=== PATIENT | female | born 1980 | race Caucasian/White ===

== ENCOUNTER → 2018-11-01 10:04 | Outpatient (CLI) | payer BC, SELFPAY ==
[2014-02-02 04:07] VITALS: BMI 29.2
[2018-11-01 10:35] LABS: Absolute Lymphocyte Count 1.31 X10^3/ul (0.83-4.51); Absolute Neutrophil Count 3.4 X10^3/uL (2.0-7.7); Basophil# 0.03 X10^3/uL; Basophil% 0.5 % (0-1); Differential Indicated SCAN CRITERIA MET; Eosinophils% 3.6 % (0-5); Hematocrit 29.6 % (37-47); Hemoglobin 7.8 g/dl (12.0-15.0); Lymphocyte # 1.31 X10^3/ul (4.0); Lymphocyte % 23.9 % (19-41); Mean Corp Hgb Conc 26.4 g/gl (32-36); Mean Corpuscular Hgb 16.3 pg (27.0-32.0); Mean Corpuscular Volume 61.9 fL (81-99); Monocyte% 9.1 % (0-10); Neutrophil # 3.43 X10^3/uL (2.7-7.7); Neutrophil % 62.7 % (47-70); POSITIVE COUNT NO; POSITIVE DIFFERENTIAL NO; POSITIVE MORPHOLOGY YES; Platelet Count 205 K/mm3 (150-450); RBC Distribution Width CV 19.8 % (11.6-14.6); Red Blood Count 4.78 M/mm3 (4.2-5.4); White Blood Count 5.5 K/mm3 (4.4-11.0)
[2018-11-01 11:00] LABS: Anion Gap 4 (5-15); BUN 11 mg/dL (7-18); BUN/Creat Ratio 16.6 RATIO (10-20); Calcium,Total 8.1 mg/dL (8.5-10.1); Chloride 111 mmol/L (98-107); Cholesterol 112 mg/dL (200); Creatinine, Serum 0.66 mg/dL (0.55-1.02); EST Glomerular Filtration Rate 106 mL/min (>60); Est Glom Filt Rate - Afr Amer 128 mL/min (>60); Glucose 103 mg/dL (74-106); High Density Lipoprotein 29 mg/dL; Potassium 4.2 mmol/L (3.5-5.1); Sodium Level 142 mmol/L (136-145); Triglycerides 95 mg/dL; Very Low Density Lipoprotein 19 mg/dL (5-40)
[2018-11-01 11:08] LABS: Hypochromasia 2+; Microcytosis 2+
[2018-11-01 11:10] LABS: Platelet Morphology LARGE
[2018-11-03 11:35] LABS: Vitamin D,25 Hydroxy 30.1 ng/mL (29.95-100.01)
== END ==
PROVIDERS: Family Provider Family Medicine; PCP Family Medicine; Referring Provider Family Medicine; Visit Provider Family Medicine
DX: Z00.00 Encounter for general adult medical examination without abnormal findings (principal)
CPT/HCPCS: 36415; 80048; 80061; 82306; 85025

== ENCOUNTER → 2018-11-03 16:11 | Outpatient (CLI) | payer BC, SELFPAY ==
[2014-02-02 04:07] VITALS: BMI 29.2
[2018-11-03 18:08] LABS: Absolute Lymphocyte Count 1.64 X10^3/ul (0.83-4.51); Absolute Neutrophil Count 5.3 X10^3/uL (2.0-7.7); Basophil# 0.04 X10^3/uL; Basophil% 0.5 % (0-1); Eosinophil# 0.17 X10^3/uL; Eosinophils% 2.2 % (0-5); Hematocrit 28.1 % (37-47); Hemoglobin 7.6 g/dl (12.0-15.0); Lymphocyte # 1.64 X10^3/ul (4.0); Lymphocyte % 21.4 % (19-41); Mean Corpuscular Hgb 16.5 pg (27.0-32.0); Mean Corpuscular Volume 61.1 fL (81-99); Monocyte# 0.52 X10^3/uL; Monocyte% 6.8 % (0-10); Neutrophil # 5.28 X10^3/uL (2.7-7.7); Platelet Count 207 K/mm3 (150-450); RBC Distribution Width CV 19.7 % (11.6-14.6); RBC Distribution Width SD 43.5 fl (35.1-43.9); White Blood Count 7.7 K/mm3 (4.4-11.0)
[2018-11-03 18:09] LABS: Differential Indicated SCAN CRITERIA MET; POSITIVE COUNT NO; POSITIVE DIFFERENTIAL NO; POSITIVE MORPHOLOGY YES
[2018-11-03 18:22] LABS: Differential Comment SCANNED
[2018-11-05 12:07] LABS: Immature Platelet Fraction 7.3 % (1.0-7.9); RET-HE 14.4 pg (30-35)
== END ==
PROVIDERS: Family Provider Family Medicine; PCP Family Medicine; Visit Provider Family Medicine
DX: R89.9 Unspecified abnormal finding in specimens from other organs, systems and tissues (principal)
CPT/HCPCS: 36415; 85025; 85045

== ENCOUNTER 2018-11-07 08:26 | Outpatient (RCR) | payer BC, SELFPAY ==
[2014-02-02 04:07] VITALS: BMI 29.2
[2018-11-07 10:27] LABS: Hematocrit 28.4 % (37-47); Hemoglobin 7.7 g/dl (12.0-15.0); Mean Corp Hgb Conc 27.1 g/gl (32-36); Mean Corpuscular Hgb 16.8 pg (27.0-32.0); Mean Corpuscular Volume 61.9 fL (81-99); Platelet Count 168 K/mm3 (150-450); RBC Distribution Width CV 19.8 % (11.6-14.6); RBC Distribution Width SD 43.1 fl (35.1-43.9); Red Blood Count 4.59 M/mm3 (4.2-5.4); White Blood Count 5.5 K/mm3 (4.4-11.0)
[2018-11-07 10:52] LABS: Scan Indicated on CBC? Y/N YES- FLAGS NOTED
[2018-11-07 10:54] LABS: Differential Comment SCANNED
== END 2018-11-07 10:00 | disposition home or self-care (01) ==
LOC: MTLAB 08:26
PROVIDERS: Family Provider Family Medicine; PCP Family Medicine; Referring Provider Family Medicine; Visit Provider Family Medicine
DX: D64.9 Anemia, unspecified (principal)
CPT/HCPCS: 36415; 85027

== ENCOUNTER → 2018-11-11 15:23 | Outpatient (CLI) | payer BC, SELFPAY ==
[2014-02-02 04:07] VITALS: BMI 29.2
[2018-11-11 18:04] LABS: Hematocrit 29.3 % (37-47); Hemoglobin 7.9 g/dl (12.0-15.0); Mean Corpuscular Hgb 17.5 pg (27.0-32.0); Mean Corpuscular Volume 64.8 fL (81-99); Platelet Count 141 K/mm3 (150-450); RBC Distribution Width CV 23.6 % (11.6-14.6); RBC Distribution Width SD 45.1 fl (35.1-43.9); Red Blood Count 4.52 M/mm3 (4.2-5.4); White Blood Count 7.2 K/mm3 (4.4-11.0)
[2018-11-11 18:07] LABS: Scan Indicated on CBC? Y/N YES- FLAGS NOTED
[2018-11-11 18:27] LABS: Differential Comment SCANNED
== END ==
PROVIDERS: Family Provider Family Medicine; PCP Family Medicine; Referring Provider Family Medicine; Visit Provider Family Medicine
DX: D64.9 Anemia, unspecified (principal)
CPT/HCPCS: 36415; 85027

== ENCOUNTER → 2018-12-02 | Outpatient (CLI) | payer BC, SELFPAY ==
[2018-12-02 19:08] LABS: Hematocrit 39.4 % (37-47); Mean Corp Hgb Conc 30.5 g/gl (32-36); Mean Corpuscular Hgb 22.9 pg (27.0-32.0); Platelet Count 196 K/mm3 (150-450); Red Blood Count 5.25 M/mm3 (4.2-5.4); White Blood Count 6.5 K/mm3 (4.4-11.0)
[2018-12-02 19:14] LABS: Scan Indicated on CBC? Y/N YES- FLAGS NOTED
[2018-12-04 09:58] LABS: Pathologist Review Reviewed
== END | disposition home or self-care (01) ==
LOC: MFPLAB 15:21
PROVIDERS: Family Provider Family Medicine; PCP Family Medicine; Referring Provider Family Medicine; Visit Provider Family Medicine
DX: D64.9 Anemia, unspecified (principal)
CPT/HCPCS: 36415; 85027

== ENCOUNTER → 2019-11-04 14:58 | Outpatient (CLI) | payer BC, SELFPAY ==
[2014-02-02 04:07] VITALS: BMI 29.2
[2019-11-04 18:09] LABS: Absolute Lymphocyte Count 1.84 X10^3/uL (0.83-4.51); Absolute Neutrophil Count 6.2 X10^3/uL (2.0-7.7); Basophil# 0.08 X10^3/uL; Basophil% 0.9 % (0-1); Eosinophil# 0.35 X10^3/uL; Eosinophils% 3.9 % (0-5); Hematocrit 45.7 % (37-47); Hemoglobin 14.7 g/dL (12.0-15.0); Lymphocyte # 1.84 X10^3/ul (4.0); Lymphocyte % 20.4 % (19-41); Mean Corp Hgb Conc 32.2 g/dL (32-36); Mean Corpuscular Hgb 26.7 pg (27.0-32.0); Mean Corpuscular Volume 83.1 fL (81-99); Mean Platelet Vol. 11.2 fl (6.2-12.0); Monocyte# 0.57 X10^3/uL; Monocyte% 6.3 % (0-10); NRBC Flagged by Analyzer 0 % (0-5); Neutrophil # 6.16 X10^3/uL (2.7-7.7); Neutrophil % 68.2 % (47-70); Platelet Count 234 K/mm3 (150-450); RBC Distribution Width CV 15.9 % (11.6-14.6); RBC Distribution Width SD 47.9 fl (35.1-43.9)
[2019-11-04 18:27] LABS: Ferritin 9 ng/mL (8-252); Iron 57 ug/dL (50-170); Iron Binding Capacity,Total 348 ug/dL (250-450); PERCENT IRON SATURATION 16.4 % (15.0-55.0)
== END ==
PROVIDERS: PCP Family Medicine; Referring Provider Family Medicine; Visit Provider Family Medicine
DX: D64.9 Anemia, unspecified (principal)
CPT/HCPCS: 36415; 82728; 83540; 83550; 85025

== ENCOUNTER → 2020-03-07 09:37 | Outpatient (CLI) | payer BC, SELFPAY ==
[2020-03-10 12:44] LABS: HPV APTIMA, High Risk Negative (Negative)
== END ==
PROVIDERS: PCP Family Medicine; Visit Provider Obstetrics & Gynecology
DX: Z12.4 Encounter for screening for malignant neoplasm of cervix (principal)
CPT/HCPCS: 87624; 88175; G0145

== ENCOUNTER → 2020-03-15 09:44 | Outpatient (CLI) | payer BC, SELFPAY ==
[2014-02-02 04:07] VITALS: BMI 29.2
--- NOTE | 2020-03-15 09:15 | VUL_PTH ---
PATIENT: DUNIA HANKINS LOC: [facility] U#:[id number] AGE/SX: 45/F ROOM: RE03/15/[address]: Dr. Arnie Briggs MD : 1980 BED: DIS: SPEC #: [id number] RECD: 03/15/20 11:09 STATUS: [place]OR[place] NADINE #: [id number] SAQIB: 03/15/20 09:[address]: Arnie Briggs DEPT: SURGICAL PATHOLOGY RECD BY: Eusebio Velasquez ENTERED: 03/15/20 12:10 SP TYPE: VULVA BX OTHR DR: Dr. Naresh Ramsey MD Tissues: Vulva, NOS Procedures: Surgery Specimen Level IV HEADER OPERATION: Vulvar biopsy PRE-OP DIAGNOSIS: Suspicious for Lichen TISSUE SUBMITTED: Vulvar biopsy MICROSCOPIC DIAGNOSIS Vulva, biopsy: Focal changes consistent with lichen sclerosus. Hyperkeratosis. AM:[place] 03/16/20 MICROSCOPIC DESCRIPTION Slides are reviewed. GROSS DESCRIPTION Received in fixative is one container labeled with the patient's name and designated labia biopsy. The specimen consists of two irregular fragments of light english soft tissue that in aggregate measure 0.6 x 0.5 x 0.1 cm. The specimen is totally submitted in one cassette. / AM:zonia 03/15/20 TC:5 CPT: 44879
== END ==
PROVIDERS: PCP Family Medicine; Visit Provider Obstetrics & Gynecology
DX: L85.9 Epidermal thickening, unspecified (principal)
CPT/HCPCS: 88305

== ENCOUNTER → 2020-03-28 11:46 | Outpatient (CLI) | payer BC, SELFPAY ==
--- NOTE | 2020-03-28 11:48 | BI_ITS ---
MAMMOGRAPHY - BILATERAL SCREENING REASON FOR EXAM: Female, 40 years old. Routine annual screening examination. PERTINENT HISTORY: Non-contributory. TECHNIQUE: Digital bilateral breast laverne (3D mammographic acquisition) in the CC and MLO projections. 2-D mediolateral oblique (MLO) and craniocaudad (CC) views of both breasts were obtained. CAD: Full Field Digital Mammography with Computer Added Detection was performed. COMPARISON: None. Baseline examination. FINDINGS: Breast Composition: The breasts are heterogeneously dense, which may obscure small masses. There are no dominant masses or suspicious calcifications. Small benign appearing bilateral axillary lymph nodes. No other significant abnormalities are identified. BI/SCREEN MAMM (CAD) W/LAVERNE BILAT IMPRESSION: Negative screening mammogram. Yearly followup mammogram recommended. (A) ASSESSMENT CATEGORY: BIRADS Category 2: Benign. A letter regarding these results will be sent to the patient by the facility within 30 days. Approximately 10% of breast cancers are not detected by mammography. A normal mammogram should not delay biopsy of a clinically suspicious abnormality. [id number] Electronically Signed: Damon Hamilton, at 15:29 EDT , Service support ,
== END ==
PROVIDERS: PCP Family Medicine; Referring Provider Obstetrics & Gynecology; Visit Provider Obstetrics & Gynecology
DX: Z12.31 Encounter for screening mammogram for malignant neoplasm of breast (principal)
CPT/HCPCS: 77063; 77067

== ENCOUNTER 2021-01-20 09:06 | Emergency (ER) | payer BC, SELFPAY ==
[2021-01-20 09:07] VITALS: BP 127/70; PULSE 99; RESP 16; TEMP 36.4; O2SAT 100; BMI 29.6
--- NOTE | 2021-01-20 09:29 | EDS_ITS ---
HPI HPI - URI History of Present Illness Chief Complaint: Shortness of Breath Informant: patient Onset/Context/Timing Onset: Yesterday Context: Gradual Onset Timing: Continuous Quality: cough, wheezing Location: chest Current Severity: Moderate Maximum Severity: Moderate Worsened by: - (coughing) Relieved by: - (nothing) Associated Symptoms Associated Symptoms: Positive for Nasal Congestion, Myalgias, Shortness of Breath, Chest Pain (tightness) and Nonproductive cough; Negative for Headache, Sinus Pressure, Nausea, Vomiting, Diarrhea and Hemoptysis Narrative Narrative: Patient presents with nonproductive cough, wheezing, chest tightness, myalgias that started yesterday gradual in onset, she works 3rd shift and was seen in urgent care sent here. No known contact with anyone with similar illness or Covid that she knows of. She has never been vaccinated against Covid. She denies history of asthma. No leg pain or swelling. No history of DVT or PE. She is a smoker. ROS ROS ED Constitutional Constitutional ED: Denies chills or fever(s) Eyes Eyes: Denies change in vision or diplopia ENT ENT ED: Denies sore throat Cardiovascular Cardiovascular: Reports as per HPI and chest pain; Denies palpitations Respiratory/Chest Respiratory/Chest: Reports chest tightness, dry cough and wheezing Gastrointestinal Gastrointestinal: Denies abdominal pain, diarrhea, nausea or vomiting Genitourinary Genitourinary ED: Denies dysuria or hematuria Musculoskeletal Musculoskeletal: Denies back pain or neck pain Integumentary Denies abscess or rash Neurologic Neurologic: Denies headache(s), paresthesias or weakness Psychiatric Psychiatric: Denies anxiety or suicidal thoughts PFSH PFSH no medical history Home Medications clindamycin HCl [Cleocin HCl] 300 mg PO Q6H #40 capsule 02/02/14 [Rx Last Taken Unknown] etodolac 300 mg PO TIDCM PRN #30 capsule 02/02/14 [Rx Last Taken Unknown] albuterol sulfate [Ventolin HFA] 1 - 2 puff INHALATION Q4H PRN PRN #1 inhaler 01/20/21 [Rx Last Taken Unknown] benzonatate 200 mg PO TID PRN PRN #20 capsule 01/20/21 [Rx Last Taken Unknown] Allergy/AdvReac Type Severity Reaction Status Date / Time No Known Allergies Allergy Verified 01/20/21 09:07 Social History Smoking Status: Current every day smoker tobacco type: cigarettes EXAM Physical Exam Const Vital Signs: 01/20/21 09:07 01/20/21 09:14 Temperature 97.6 F L Temperature Source Temporal Pulse Rate 99 Respiratory Rate 16 Respiratory Effort Normal Non-Labored Blood Pressure 127/70 H Blood Pressure Mean 89 Pulse Ox 100 Oxygen Delivery Method Room Air Room Air Positive well nourished and well developed General Appearance ED: well developed and NAD HEENT Reports moist mucous membranes normocephalic and atraumatic Eyes PERRL and EOMs intact bilaterally Neck full ROM and supple Resp normal respiratory effort Effort and Inspection: Negative for respiratory distress Auscultation: wheezes expiratory wheezes and throughout Cardio regular rate, regular rhythm and no murmurs Back/Spine no CVA tenderness General Back: other FROM Extremity normal to inspection and no calf tenderness General Extremety ED: Negative for edema, pulses abnormal or tenderness General Extremity: Negative for edema or pulses abnormal Neuro oriented x3, CN's II-XII intact bilaterally and no sensory deficits noted Sensorium / Orientation: awake and alert Motor Exam: strength 5/5 throughout Skin no rashes or lesions noted and no wounds MDM MDM MDM Narrative Medical decision making narrative: Rapid Covid negative, portable chest negative as well on my interpretation 1 view chest x-ray. Patient is improved after duo nebulizer treatment. Consistent with viral etiology bronchitis that is causing wheezing, for which antibiotics and steroids are not indicated at this time. S he given a prescription for albuterol MDI and Tessalon and advised to follow-up if she does not improve within the next week or so. We discussed reasons to return she is comfortable with that plan. Radiography Diagnostic Testing: Radiology Impression Chest X-Ray 01/20/21 10:18 IMPRESSION: Normal portable chest. Electronically Signed: Tushar Higgins DO at 10:52 EDT Tel , Service support , Discharge Plan Triage Chief Complaint: Shortness of Breath ED Provider: Nathan Oleary Dx/Rx/DC Orders Clinical Impression: Acute wheezy bronchitis Instructions: ED Bronchitis with Wheezing (Adult) Prescriptions: New benzonatate [benzonatate] 100 MG capsule 200 mg PO TID PRN PRN (Reason: Cough) Qty: 20 RF: 0 albuterol sulfate [Ventolin HFA] 1 INHALER inhaler 1 - 2 puff inhalation Q4H PRN PRN (Reason: Wheezing) Qty: 1 RF: 0 No Action clindamycin HCl [Cleocin HCl] 300 MG capsule 300 mg PO Q6H Qty: 40 RF: 0 etodolac 300 MG capsule 300 mg PO TIDCM PRN (Reason: Pain) Qty: 30 RF: 0 Primary Care Provider: Naresh Ramsey Referrals: Naresh Ramsey MD [Primary Care Provider] - 10-14 Days if not better Disposition Disposition: Home, Self Care
--- NOTE | 2021-01-20 10:18 | RAD_ITS ---
EXAM DESCRIPTION: PORTABLE AP CHEST CLINICAL HISTORY: 41 years Female, cough sob cough sob COMPARISON: None FINDINGS: The thorax is intact. The heart and mediastinum appear to be within normal limits. The lungs appear to be well areated without evidence of pneumonic consolidation or pleural effusion. RAD/Chest 1 View (Portable) IMPRESSION: Normal portable chest. Electronically Signed: Tushar Higgins DO at 10:52 EDT Tel , Service support ,
[2021-01-20] MEDS: Ipratropium/Albuterol Sulfate 3 ML AMPUL.NEB INHALATION (11:28)
[2021-01-20 11:29] VITALS: PULSE 90; RESP 18
[2021-01-20 11:43] VITALS: BP 121/62; PULSE 84; RESP 16; O2SAT 100
== END 2021-01-20 12:00 | disposition home or self-care (01) ==
PROVIDERS: Emergency Provider Emergency Medicine; PCP Family Medicine
DX: J20.9 Acute bronchitis, unspecified (principal); F17.210 Nicotine dependence, cigarettes, uncomplicated; Z79.899 Other long term (current) drug therapy
CPT/HCPCS: 71045; 87426; 94640; 99282

== ENCOUNTER 2021-07-04 08:02 | Outpatient (CLI) | payer BC, SELFPAY ==
--- NOTE | 2021-07-04 08:05 | BI_ITS ---
MAMMOGRAPHY - BILATERAL SCREENING REASON FOR EXAM: Female, 41 years old. Routine annual screening examination. PERTINENT HISTORY: Non-contributory. Occasional bilateral nipple soreness. TECHNIQUE: Digital bilateral breast laverne (3D mammographic acquisition) in the CC and MLO projections. 2-D mediolateral oblique (MLO) and craniocaudad (CC) views of both breasts were obtained. CAD: Full Field Digital Mammography with Computer Added Detection was performed. COMPARISON: Comparison is made with prior study 03/28/2020. FINDINGS: Breast Composition: The breasts are heterogeneously dense, which may obscure small masses. There are no dominant masses or suspicious calcifications. Stable small benign-appearing bilateral axillary lymph nodes. No other significant abnormalities are identified. There has been no significant change since the prior study. BI/SCRN MAMM (CAD)W/LAVERNE BILAT IMPRESSION: Stable bilateral screening mammogram. Yearly follow-up mammogram recommended. (A) ASSESSMENT CATEGORY: BIRADS Category 2: Benign. A letter regarding these results will be sent to the patient by the facility within 30 days. Approximately 10% of breast cancers are not detected by mammography. A normal mammogram should not delay biopsy of a clinically suspicious abnormality. [id number] Electronically Signed: Damon Hamilton MD at 8:41 EST , Service support ,
== END 2021-07-04 23:59 | disposition short-term general hospital (02) ==
LOC: OPBI 08:02
PROVIDERS: PCP Family Medicine; Referring Provider Obstetrics & Gynecology; Visit Provider Obstetrics & Gynecology
DX: Z12.31 Encounter for screening mammogram for malignant neoplasm of breast (principal)
CPT/HCPCS: 77063; 77067

== ENCOUNTER → 2022-12-27 | Outpatient (CLI) | payer BC, SELFPAY ==
--- NOTE | 2022-12-27 14:49 | BI_ITS ---
MAMMOGRAPHY - BILATERAL SCREENING REASON FOR EXAM: Female, 42 years old. Routine annual screening examination. PERTINENT HISTORY: Non-contributory. TECHNIQUE: Digital bilateral breast laverne (3D mammographic acquisition) in the CC and MLO projections. 2-D mediolateral oblique (MLO) and craniocaudad (CC) views of both breasts were obtained. CAD: Full Field Digital Mammography with Computer Added Detection was performed. COMPARISON: Comparison is made with prior study dated July 04, 2021 and March 28, 2020. FINDINGS: Breast Composition: The breasts are heterogeneously dense, which may obscure small masses. There are no dominant masses or suspicious calcifications. Stable small benign-appearing bilateral axillary lymph nodes. No other significant abnormalities are identified. There has been no significant change since the prior study. BI/SCRN MAMM (CAD)W/LAVERNE BILAT IMPRESSION: Stable bilateral screening mammogram. Yearly follow-up mammogram recommended. (A) ASSESSMENT CATEGORY: BIRADS Category 2: Benign. A letter regarding these results will be sent to the patient by the facility within 30 days. Approximately 10% of breast cancers are not detected by mammography. A normal mammogram should not delay biopsy of a clinically suspicious abnormality. [id number] Electronically Signed: Damon Hamilton MD at 8:29 EDT ,
== END | disposition home or self-care (01) ==
PROVIDERS: Referring Provider Obstetrics & Gynecology; Visit Provider Obstetrics & Gynecology
DX: Z12.31 Encounter for screening mammogram for malignant neoplasm of breast (principal)
CPT/HCPCS: 77063; 77067

== ENCOUNTER → 2023-07-30 | Outpatient (CLI) | payer BC, SELFPAY ==
--- OUTSIDE RECORDS SUMMARY | 2023-07-30 08:45 | XMS RPT_ITS | CCD ---
Author Name Unknown Address [address] [place] [address] Organization [facility] Care Team Providers Care Clerical Receptionist Name Role Phone Unavailable Primary Care Provider Unavailabl e Medications Current Medications Medication Drug Class(es) Dates Sig (Normalized) Sig (Original) Inhalational Spacing Device (1 source) Start: 11-17-2021 End: 11-17-2021 Inhalational Spacing Device 1 Device one time only for 1 dose. 1 Each 0 11/17/2021 11/17/2021 Active Completed/Discontinued Medications Medication Drug Class(es) Dates Sig (Normalized) Sig (Original) [id number] 200 actuat albuterol 0.09 mg/actuat metered dose inhaler (2 sources) beta2-Adrenergic Agonist Start: 06-21-2013 take 2 puff(s) by inhalation every six hours as needed for wheezing albuterol HFA (PROVENTIL HFA, VENTOLIN HFA) 90 mcg/actuation inhaler Inhale 2 Puffs as instructed every 6 hours as needed for wheezing/shortnes s of breath. 1 Each 0 11/17/2021 Active Problems Active Problems Problem Classification Problem Date Documented Da te Episodic/Chronic Coagulation and hemorrhagic disorders (1 source) Platelet count below reference range; Translations: [Thrombocytopenia , unspecified] 09-18-2007 Chronic Other lower respiratory disease (1 source) Cough; Translations: [Cough] Episodic Substance-related disorders (1 source) Tobacco user; Translations: [Nicotine dependence, unspecified, uncomplicated] Onset: 10-02-2008 10-02-2008 Chronic Past or Other Problems Problem Classification Problem Date Documented Da te Episodic/Chronic Other nutritional; endocrine; and metabolic disorders (1 source) Overweight; Translations: [Overweight] Onset: 09-18-2007 09-18-2007 Episodic Results Test Name Value Interpretation Reference Range Facil ity Vital Signs Date Time Vital Sign Value Performing Clinician Faci lity 11-17-2021 18:16-0400 Body temperature 98.6 [degF] Marilia Gaitan APRN.[place] [employer] Work Phone: [facility] 11-17-2021 18:16-0400 Body weight 74.03 kg Marilia Gaitan APRN.[place] CLEAR[employer] Work Phone: [facility] 11-17-2021 18:16-0400 Diastolic blood pressure 64 mm[Hg] Marilia Gaitan APRN.[place] [employer] Work Phone: [facility] 11-17-2021 18:16-0400 Heart rate 88 /min Marilia Gaitan APRN.[place] [employer] Work Phone: [facility] 11-17-2021 18:16-0400 Respiratory rate 18 /min Marilia Gaitan APRN.[place] [employer] Work Phone: [facility] 11-17-2021 18:16-0400 SaO2% (BldA) [Mass fraction] 99 % Marilia Gaitan APRN.[place] [employer] Work Phone: [facility] 11-17-2021 18:16-0400 Systolic blood pressure 128 mm[Hg] Marilia Gaitan APRN.[place] [employer] Work Phone: [facility] Encounters Encounter Date Encounter Type Care Provider Facility Start: 11-17-2021 End: 11-17-2021 Patient encounter procedure Marilia Gaitan APRN.[place] [employer] Work Phone: [facility] Plan of Treatment Date Care Activity Detail Author Start: 02-15-2022 Influenza vaccination INFLUENZA (Sea son Ended) [facility] Start: 10-12-2021 HPV TESTING HPV TESTING [facility] Start: 10-12-2021 PAP TESTING PAP TESTING [facility] Start: 2020 Mammography MAMMOGRAM [facility] Start: 01-11-1999 Urine microalbumin profile DTAP,TDAP,TD (1 - Tdap) [facility] Start: 01-11-1998 HEPATITIS C SCREENING HEPATITIS C SC ZIYAD [facility] Start: 01-11-1998 HIV SCREENING HIV SCREENING [facility] Start: 1992 Adult depression screening assessment DEPRESSION SCREENING [facility] Start: 01-11-1986 PNEUMOCOCCAL (1 - PCV) PNEUMOCOCCAL (1 - PCV) [facility] Start: 01-11-1985 COVID-19 VACCINE (#1) COVID-19 VACCI NE (#1) [facility] Immunizations Immunization Date Immunization Notes Care Provider Ynes booker 04-23-2008 influenza virus vaccine, unspecified formulation Marilia Gaitan APRN.[place] [employer] Work Phone: [facility] Work Phone: Payers Date Payer Category Payer Unknown SHAKIR FRANCOIS PPO [id number] 2021-Present [phone] [address] [place] [address] PPO [id number] Social History Date Type Detail Facility Tobacco smoking stat [facility] Smokes tobacco daily [facility] Start: 11-17-2021 Alcohol intake Current drinke r of alcohol (finding) [facility] Start: 1980 Sex Assigned At Not on file [facility] Start: 11-07-2021 End: 11-17-2021 Exposure to SARS-CoV-2 (event) Not sure [facility] Progress note 11-17-2021 Note Date & Type Note Facility 11-17-2021 Note HNO ID: [id number] Author: Marilia Gaitan APRN.[place] CLE[employer] Service: ? Author Type: Nurse Practitioner Type: Progress Notes Filed: 11/17/2021 6:32 PM Note Text: CC: Patient presents with: Chest Congestion: intermittent SOB with coughing, denied chest pain, reported chest tightness HPI: Germán Hankins is a 41 year old female who presents to the office with complaint of cough, nonproductive and wheezing for the past day. Symptoms are worsening Associated symptoms includes cough. Denies fever, nausea, vomiting and diarrhea. Treatments tried include nothing so far. with no relief of symptoms. Sick contacts: unknown. History of asthma, frequent episodes of bronchitis, chronic bronchitis, bronchiectasis or COPD: No Smoker: No Seasonal/environmental allergies: No The ROS is otherwise negative. The patient's pmh, medications, allergies, and past visits are reviewed. PHYSICAL EXAM: BP 128/64 Pulse 88 Temp 37 ?C (98.6 ?F) Resp 18 Wt 74 kg (163 lb 3.2 oz) LMP 11/14/2021 SpO2 99% General appearance: alert, cooperative, pleasant, in no acute distress Head: Normocephalic Eyes: EOM's intact, conjunctiva pink and moist, no icterus, sclera white, non-injected Ears: Right ear: External ear/canal- Normal, TM - clear with good landmarks. Left ear: External ear/canal- Normal, TM - clear with good landmarks Heart: Negative. RRR without obvious murmur, gallop, or rubs. No ectopy. Lungs: clear to auscultation, without rales or wheeze, good air exchange PAST MEDICAL HISTORY Diagnosis Date - Thrombocytopenia, unspecified (HCC) 2005 while , has not been rechecked to make sure they returned to normal. PAST SURGICAL HISTORY Procedure Laterality Date - DELIVERY ONLY 2002,2005 , low cervical - TONSILLECTOMY AND ADENOIDECTOMY T/A (under age 12 years) - TYMPANOSTOMY GENERAL ANESTHESIA 1985 Ear tubes ALLERGIES Patient has no known allergies. MEDICATIONS multivit,thx,calcium,iron,mins (MULTIVITAMIN AND MINERAL ORAL) Take by mouth. albuterol HFA (PROVENTIL HFA, VENTOLIN HFA) 90 mcg/actuation inhaler Inhale 2 Puffs as instructed every 6 hours as needed for wheezing/shortness of breath. Inhalational Spacing Device 1 Device one time only for 1 dose. predniSONE (DELTASONE) 20 mg tablet Take 2 tablets by mouth once daily for 5 days. Azelastine HCl (OPTIVAR) 0.05 % ophthalmic solution Use 1 Drop in both eyes twice daily. albuterol HFA 90 mcg/actuation inhaler Inhale 2 Puffs as instructed every 6 hours as needed for Wheezing/Shortness of Breath. FAMILY HISTORY Problem Relation Age of Onset - Hypertension Maternal Grandfather - Hypertension Maternal Grandmother Social History Tobacco Use - Smoking status: Current Every Day Smoker Years: 5.00 - Smokeless tobacco: Never Used - Tobacco comment: 3 cigs/day Substance Use Topics - Alcohol use: Yes Comment: 1 drink/6 months - Drug use: No ASSESSMENT/PLAN: 1. Cough - ICD9: 786.2, ICD10: R05.9 Prescription instructions reviewed with patient as applicable. prednisone for 5 days and albuterol PRN. Potential red flag symptoms discussed with the patient. Reviewed appropriate action plan to take if red flag symptoms occur. Patient agreeable to treatment plan. Marilia Gaitan APRN.INDIRA [facility] History of Present illness Narrative 11-17-2021 Marilia Gaitan APRN.INDIRA - 11/17/2021 6:29 PM EDT Note Date & Type Note Facility 11-17-2021 History of Presen t illness Narrative CC: Patient presents with: Chest Congestion: intermittent SOB with coughing, denied chest pain, reported chest tightness HPI: Germán Hankins is a 41 year old female who presents to the office with complaint of cough, nonproductive and wheezing for the past day. Symptoms are worsening Associated symptoms includes cough. Denies fever, nausea, vomiting and diarrhea. Treatments tried include nothing so far. with no relief of symptoms. Sick contacts: unknown. History of asthma, frequent episodes of bronchitis, chronic bronchitis, bronchiectasis or COPD: No Smoker: No Seasonal/environmental allergies: No The ROS is otherwise negative. The patient's pmh, medications, allergies, and past visits are reviewed. PHYSICAL EXAM: BP 128/64 Pulse 88 Temp 37 C (98.6 F) Resp 18 Wt 74 kg (163 lb 3.2 oz) LMP 11/14/2021 SpO2 99% General appearance: alert, cooperative, pleasant, in no acute distress Head: Normocephalic Eyes: EOM's intact, conjunctiva pink and moist, no icterus, sclera white, non-injected Ears: Right ear: External ear/canal- Normal, TM - clear with good landmarks. Left ear: External ear/canal- Normal, TM - clear with good landmarks Heart: Negative. RRR without obvious murmur, gallop, or rubs. No ectopy. Lungs: clear to auscultation, without rales or wheeze, good air exchange PAST MEDICAL HISTORY Diagnosis Date Thrombocytopenia, unspecified (HCC) 2005 while , has not been rechecked to make sure they returned to normal. PAST SURGICAL HISTORY Procedure Laterality Date DELIVERY ONLY 2002,2005 , low cervical TONSILLECTOMY & ADENOIDECTOMY <AGE 12 1985 (tonsils), 1986 (adenoids) T/A (under age 12 years) TYMPANOSTOMY GENERAL ANESTHESIA 1986 Ear tubes ALLERGIES Patient has no known allergies. MEDICATIONS multivit,thx,calcium,iron,mins (MULTIVITAMIN AND MINERAL ORAL) Take by mouth. albuterol HFA (PROVENTIL HFA, VENTOLIN HFA) 90 mcg/actuation inhaler Inhale 2 Puffs as instructed every 6 hours as needed for wheezing/shortness of breath. Inhalational Spacing Device 1 Device one time only for 1 dose. predniSONE (DELTASONE) 20 mg tablet Take 2 tablets by mouth once daily for 5 days. Azelastine HCl (OPTIVAR) 0.05 % ophthalmic solution Use 1 Drop in both eyes twice daily. albuterol HFA 90 mcg/actuation inhaler Inhale 2 Puffs as instructed every 6 hours as needed for Wheezing/Shortness of Breath. FAMILY HISTORY Problem Relation Age of Onset Hypertension Maternal Grandfather Hypertension Maternal Grandmother Social History Tobacco Use Smoking status: Current Every Day Smoker Years: 5.00 Smokeless tobacco: Never Used Tobacco comment: 3 cigs/day Substance Use Topics Alcohol use: Yes Comment: 1 drink/6 months Drug use: No ASSESSMENT/PLAN: 1. Cough - ICD9: 786.2, ICD10: R05.9 Prescription instructions reviewed with patient as applicable. prednisone for 5 days and albuterol PRN. Potential red flag symptoms discussed with the patient. Reviewed appropriate action plan to take if red flag symptoms occur. Patient agreeable to treatment plan. Marilia Gaitan APRN.INDIRA documented in this encounter [facility] Progress note 08-07-2021 Note Date & Type Note Facility 08-07-2021 Note HNO ID: [id number] Author: Nori Rojas PA-C Service: ? Author Type: Physician Program Developer Type: Progress Notes Filed: 08/07/2021 3:48 PM Note Text: This note was created using [employer]. Subjective Germán Hankins is a 41 year old female. HPI Patient presents with a swollen lymph node over the past 10 days. She had a cold at the end of June that lasted about 4 days. She states since then she has felt fine. The past 10 days she has noticed on the right side of her neck a swollen lymph node. It is tender. She has been taking Tylenol [id number]. Denies any dental pain. No sore throat. No ear pain. No fever or chills. Denies any weight loss or bruising. No other swollen lumps noticed. Review of Systems Hematological: Positive for adenopathy. Does not bruise/bleed easily. All other systems reviewed and are negative. PAST MEDICAL HISTORY Diagnosis Date - Thrombocytopenia, unspecified (HCC) 2006 while , has not been rechecked to make sure they returned to normal. Current Outpatient Medications Medication Sig Dispense Refill - cephALEXin (KEFLEX) 500 mg capsule Take 1 capsule by mouth three times daily for 7 days. 21 capsule 0 - predniSONE (DELTASONE) 10 mg tablet Take 4 tabs daily for 3 days, then 2 tabs daily for 3 days, then 1 tab daily for 3 days with food. (Patient not taking: Reported on 01/20/2021 ) 21 tablet 0 - Azelastine HCl (OPTIVAR) 0.05 % ophthalmic solution Use 1 Drop in both eyes twice daily. (Patient not taking: Reported on 01/20/2021 ) 1 Bottle 0 - albuterol HFA 90 mcg/actuation inhaler Inhale 2 Puffs as instructed every 6 hours as needed for Wheezing/Shortness of Breath. (Patient not taking: Reported on 01/20/2021 ) 1 Inhaler 2 No current facility-administered medications for this visit. PAST SURGICAL HISTORY Procedure Laterality Date - DELIVERY ONLY 2002,2005 , low cervical - TONSILLECTOMY AND ADENOIDECTOMY T/A (under age 12 years) - TYMPANOSTOMY GENERAL ANESTHESIA 1985 Ear tubes FAMILY HISTORY Problem Relation Age of Onset - Hypertension Maternal Grandfather - Hypertension Maternal Grandmother Social History Tobacco Use - Smoking status: Current Every Day Smoker Years: 5.00 - Smokeless tobacco: Never Used - Tobacco comment: 3 cigs/day Substance Use Topics - Alcohol use: Yes Comment: 1 drink/6 months - Drug use: No Objective BP 118/76 Pulse 80 Temp (!) 35.8 ?C (96.5 ?F) Resp 16 Wt 74.6 kg (164 lb 6.4 oz) LMP 12/20/2015 SpO2 99% Physical Exam Vitals reviewed. Constitutional: Appearance: Normal appearance. HENT: Head: Normocephalic and atraumatic. Right Ear: Tympanic membrane, ear canal and external ear normal. Left Ear: Tympanic membrane, ear canal and external ear normal. Nose: Nose normal. Mouth/Throat: Mouth: Mucous membranes are moist. Pharynx: Oropharynx is clear. No oropharyngeal exudate or posterior oropharyngeal erythema. Cardiovascular: Rate and Rhythm: Normal rate and regular rhythm. Heart sounds: Normal heart sounds. Pulmonary: Effort: Pulmonary effort is normal. Breath sounds: Normal breath sounds. Chest: Breasts: Right: No supraclavicular adenopathy. Left: No supraclavicular adenopathy. Lymphadenopathy: Head: Right side of head: Tonsillar adenopathy present. No submental, submandibular, preauricular, posterior auricular or occipital adenopathy. Left side of head: No submental, submandibular, tonsillar, preauricular, posterior auricular or occipital adenopathy. Cervical: Right cervical: No superficial, deep or posterior cervical adenopathy. Left cervical: No superficial, deep or posterior cervical adenopathy. Upper Body: Right upper body: No supraclavicular adenopathy. Left upper body: No supraclavicular adenopathy. Comments: patient has one swollen tonsillar lymph node on the right. No overlying redness. No other nodes palpated. Skin: General: Skin is warm and dry. Neurological: General: No focal deficit present. Mental Status: She is alert and oriented to person, place, and time. Assessment and Plan ASSESSMENT/PLAN: 1. Lymphadenitis - ICD9: 289.3, ICD10: I88.9 Keflex x 1 week. If not improving in 2 weeks follow upw ith pcp. Patient agreeable. Nori Rojas PA-C [facility] Progress note 01-20-2021 Note Date & Type Note Facility 01-20-2021 Note HNO ID: [id number] Author: Doroteo Jackson APRN.[employer] Service: ? Author Type: Nurse Practitioner Type: Progress Notes Filed: 01/20/2021 9:22 AM Note Text: Patient is a healthy nontoxic-appearing 41-year-old female with past medical history of tobacco use disorder, thrombocytopenia, obesity presents the office today for multiple medical complaints. Patient states of the past day she has had a harsh dry nonproductive cough, wheezing, midsternal nonradiating chest tightness no alleviating or worsening factors and resolved on its own spontaneously. Patient complains of persistent shortness of breath even at rest. Patient with general body aches and pains with fatigue. Patient denies any contact with known sick individuals, taste or smell sensation change, recent travel. Patient denies any abdominal pain, nausea, vomiting, diarrhea or constipation. Patient denies any fever, shaking, or chills. Given patient's complaint presentation I recommended patient go to the emergency room for further evaluation. Patient does have wheezing auscultated throughout all lung hill, speaking with sentences no respiratory distress, remains hemodynamically stable during office visit, pulse ox is 98% on room air however given findings I do believe a differential diagnosis of ACS, pulmonary embolism, aortic abdominal aneurysm, community-acquired pneumonia is warranted. Patient is agreeable and will go to emergency room. Report was given to [facility] via their policy. Patient ambulated out of the office today on her own power in no distress. Doroteo Jackson APRN.LAND CLEARER [facility] Evaluation note Note Date & Type Note Facility documented in this encounter [facility] Summary Purpose Family History No Family History Records Found Advance Directives No Advanced Directives Records Found Additional Source Comments Source Comments (unrecognize d section and content) In the event this informatio n is protected by the Federal Confidentiality of Alcohol and Drug Abuse Patient Records regulations: The Federal rules restrict any use of the information to criminally investigate or prosecute any alcohol or drug abuse patient.[facility] Reason for Visit (unrecogniz ed section and content) INFORMATION SOURCE (unrecogn ized section and content) FOR RECORDS PERTAINING TO PATIENTS WHO ARE OR HAVE BEEN ENROLLED IN A CHEMICAL DEPENDENCY/SUBSTANCEABUSE PROGRAM, SOME INFORMATION MAY BE OMITTED. This clinical summary was aggregated from multiple sources. Caution should be exercised in using it in the provision of clinical care. This summary normalizes information from multiple sources, and as a consequence, information in this document may materially change the coding, format and clinical context of patient data. In addition, data may be omitted in some cases. CLINICAL DECISIONS SHOULD BE BASED ON THE PRIMARY CLINICAL RECORDS. [facility] [employer] [facility]. provides no warranty or guarantee of the accuracy or completeness of information in this document.
[2023-07-30 10:36] LABS: Anion Gap 4 (5-15); BUN 11 mg/dL (7-18); BUN/Creat Ratio 15.2 RATIO (10-20); Calcium,Total 8.7 mg/dL (8.5-10.1); Chloride 113 mmol/L (98-107); Cholesterol 151 mg/dL (200); Creatinine, Serum 0.73 mg/dL (0.55-1.02); EST Glomerular Filtration Rate 93 mL/min (>60); Est Glom Filt Rate - Afr Amer 112 mL/min (>60); Glucose 86 mg/dL (74-106); High Density Lipoprotein 32 mg/dL; Potassium 4.4 mmol/L (3.5-5.1); Sodium Level 141 mmol/L (136-145); Thyroid Stim Hormone (TSH) 3.61 uIU/mL (0.358-3.74); Triglycerides 88 mg/dL; Very Low Density Lipoprotein 18 mg/dL (5-40)
== END | disposition home or self-care (01) ==
LOC: MFPLAB 08:24
PROVIDERS: Visit Provider Family Medicine
DX: Z00.00 Encounter for general adult medical examination without abnormal findings (principal)
CPT/HCPCS: 36415; 80048; 80061; 84443

== ENCOUNTER → 2024-02-07 | Outpatient (CLI) | payer BC, SELFPAY ==
[2024-02-07 11:30] LABS: Erythrocyte Sedimentation Rate 4 mm/hr (0-30)
[2024-02-07 11:34] LABS: CRP < 2.90 mg/L (0.0-3.0)
[2024-02-11 19:07] LABS: Angiotensin Convert Enzyme 53 U/L (14-82); QNTFERON TB Mitogen Value > 10.00 IU/mL (.); QNTFERON TB Nil Value 0.03 IU/mL (.); QNTFERON TB1+ Ag Value 0.03 IU/mL (.); QNTFERON TB2+ Ag Value 0.04 IU/mL (.); QNTIFERON TB Positive Criteria Negative (Negative)
== END | disposition home or self-care (01) ==
LOC: LAB 10:31
PROVIDERS: PCP Family Medicine; Referring Provider Internal Medicine Pulmonary Disease; Visit Provider Internal Medicine Pulmonary Disease
DX: R06.02 Shortness of breath (principal); R05.9 Cough, unspecified
CPT/HCPCS: 36415; 82164; 85652; 86140; 86480

== ENCOUNTER → 2024-09-01 | Outpatient (CLI) | payer BC, SELFPAY ==
[2024-09-01 10:49] LABS: Absolute Lymphocyte Count 1.35 X10^3/uL (0.83-4.51); Absolute Neutrophil Count 5.8 X10^3/uL (2.0-7.7); Basophil# 0.08 X10^3/uL; Eosinophil# 0.25 X10^3/uL; Hematocrit 34.8 % (37-47); Hemoglobin 9.9 g/dL (12.0-15.0); Lymphocyte # 1.35 X10^3/ul (0.83-4.51); Lymphocyte % 16.4 % (19-41); Mean Corp Hgb Conc 28.4 g/dL (32-36); Mean Corpuscular Hgb 18.4 pg (27.0-32.0); Mean Corpuscular Volume 64.6 fL (81-99); Monocyte# 0.73 X10^3/uL; Monocyte% 8.8 % (0-10); NRBC Flagged by Analyzer 0 % (0-5); Neutrophil # 5.81 X10^3/uL (2.7-7.7); Neutrophil % 70.4 % (47-70); Platelet Count 205 K/mm3 (150-450); RBC Distribution Width CV 18.1 % (11.6-14.6); RBC Distribution Width SD 38.8 fl (35.1-43.9); Red Blood Count 5.39 M/mm3 (4.2-5.4); White Blood Count 8.3 K/mm3 (4.4-11.0)
[2024-09-01 11:33] LABS: Ferritin 4 ng/mL (22-378)
== END | disposition home or self-care (01) ==
LOC: LAB 10:24
PROVIDERS: PCP Family Medicine; Referring Provider Nurse Practitioner Family; Visit Provider Nurse Practitioner Family
DX: R06.02 Shortness of breath (principal); Z86.2 Personal history of diseases of the blood and blood-forming organs and certain disorders involving the immune mechanism
CPT/HCPCS: 36415; 82728; 85025

== ENCOUNTER → 2024-09-30 | Outpatient (CLI) | payer BC, SELFPAY ==
--- NOTE | 2024-09-30 12:57 | ECHOD_ITS ---
Reason For Study Reason For Study: SOB Procedure This was a 2D Doppler, Color Flow transthoracic echocardiogram. Exam performed in department. Left Ventricle Normal LV size. Left ventricular systolic function is normal. The left ventricular ejection fraction is 65 %. No regional wall motion abnormalities noted. Right Ventricle Normal RV size. Normal systolic function. Atria Normal left atrium. Normal right atrium. Mitral Valve Normal mitral valve. Tricuspid Valve Normal tricuspid valve. Aortic Valve Normal aortic valve. Trisinus/trileaflet aortic valve. Pulmonic Valve Normal pulmonic valve. Great Vessels Normal aortic root. The pulmonary artery is normal size. Inferior vena cava collapse with respiration. Pericardium/Pleural No pericardial effusion. MMode/2D Measurements & Calculations LVIDd: 5.0 cm IVSd: 0.87 cm Ao root diam: 3.1 cm LVIDs: 3.3 cm LVPWd: 0.87 cm RVDd: 3.0 cm FS: 34.1 % LAV(MOD-bp): 61.4 ml LVAd ap4: 31.6 cm2 SV(MOD-sp4): 67.5 ml LAV(MOD-bp) Indexed: 34.0 ml/m2 LVLd ap4: 7.9 cm SI(MOD-sp4): 37.3 ml/m2 LAV(MOD-sp2): 59.2 ml EDV(MOD-sp4): 102.8 ml LAV(MOD-sp4): 59.1 ml EDV(sp4-el): 106.8 ml LVAs ap4: 16.0 cm2 LVLs ap4: 6.2 cm ESV(MOD-sp4): 35.3 ml ESV(sp4-el): 35.1 ml EF(MOD-sp4): 65.7 % EF(sp4-el): 67.2 % SV(sp4-el): 71.7 ml LA A4 area: 18.8 cm2 LA dimension(2D): 4.2 cm RA A4 area: 15.2 cm2 TAPSE: 2.8 cm Time Measurements MV dec time: 0.23 sec Doppler Measurements & Calculations MV E max alexander: 102.0 cm/sec Lat Peak E' Alexander: 11.6 cm/sec Med Peak E' Alexander: 10.6 cm/sec MV A max alexander: 82.5 cm/sec E/E' lat: 8.8 E/E' med: 9.6 MV E/A: 1.2 MV V2 max: 130.7 cm/sec MV P1/2t max alexander: 139.8 cm/sec Ao V2 max: 182.2 cm/sec MV max P.8 mmHg MV P1/2t: 72.4 msec Ao max P.3 mmHg MV V2 mean: 64.2 cm/sec Ao V2 mean: 118.6 cm/sec MV mean P.0 mmHg MV dec slope: 565.3 cm/sec2 Ao mean P.6 mmHg MV V2 VTI: 32.1 cm MVA(P1/2t): 3.0 cm2 Ao V2 VTI: 38.8 cm AV (velocity ratio): 0.86 LV V1 max: 157.0 cm/sec PA V2 max: 116.2 cm/sec LV V1 max P.9 mmHg PA V2 mean: 87.6 cm/sec LV V1 mean P.1 mmHg LV V1 mean: 104.5 cm/sec LV V1 VTI: 33.4 cm ECHO/Echo Complete Interpretation Summary Normal LV size. Left ventricular systolic function is normal. The left ventricular ejection fraction is 65 %. Structurally normal valves. Ordering Physician: Tavia Powell Referring Physician: Naresh Ramsey Performed By: Sarah Beth Bhagat, EJ, RVT
== END | disposition home or self-care (01) ==
LOC: CVS 12:52
PROVIDERS: PCP Family Medicine; Referring Provider Nurse Practitioner Family; Visit Provider Nurse Practitioner Family
DX: R06.02 Shortness of breath (principal)
CPT/HCPCS: 93306

== ENCOUNTER → 2024-11-30 | Outpatient (CLI) | payer BC, SELFPAY ==
[2024-11-30 17:16] LABS: Iron 136 ug/dL (50-170); Iron Binding Capacity,Total 354 ug/dL (250-450); Iron Binding Capacity,Unsat 218 ug/dL (228-428)
[2024-11-30 17:21] LABS: Ferritin 33 ng/mL (22-378)
[2024-11-30 19:27] LABS: Absolute Lymphocyte Count 1.15 X10^3/uL (0.83-4.51); Absolute Neutrophil Count 4.2 X10^3/uL (2.0-7.7); Basophil# 0.08 X10^3/uL; Basophil% 1.3 % (0-1); Eosinophil# 0.17 X10^3/uL; Eosinophils% 2.8 % (0-5); Hematocrit 42.4 % (37-47); Hemoglobin 12.3 g/dL (12.0-15.0); Lymphocyte # 1.15 X10^3/ul (0.83-4.51); Lymphocyte % 18.8 % (19-41); Mean Corpuscular Hgb 21.8 pg (27.0-32.0); Mean Corpuscular Volume 75.3 fL (81-99); Monocyte# 0.52 X10^3/uL; Monocyte% 8.5 % (0-10); NRBC Flagged by Analyzer 0 % (0-5); Neutrophil # 4.16 X10^3/uL (2.7-7.7); Neutrophil % 68.1 % (47-70); POSITIVE MORPHOLOGY YES; Platelet Count 210 K/mm3 (150-450); Red Blood Count 5.63 M/mm3 (4.2-5.4); White Blood Count 6.1 K/mm3 (4.4-11.0)
[2024-11-30 23:07] LABS: Differential Indicated SCAN CRITERIA MET
[2024-11-30 23:08] LABS: Differential Comment SCANNED
[2024-11-30 23:09] LABS: Anisocytosis 1+; Platelet Estimate ADEQUATE (ADEQ); Polychromasia 1+
== END | disposition home or self-care (01) ==
LOC: MFPLAB 11:50
PROVIDERS: PCP Family Medicine; Referring Provider Family Medicine; Visit Provider Family Medicine
DX: D50.9 Iron deficiency anemia, unspecified (principal)
CPT/HCPCS: 36415; 82728; 83540; 83550; 85025

== ENCOUNTER → 2025-06-02 | Outpatient (CLI) | payer BC, SELFPAY ==
[2025-06-04 11:09] LABS: HPV APTIMA, High Risk Negative (Negative)
== END | disposition home or self-care (01) ==
LOC: LABSPEC 12:23
PROVIDERS: PCP Family Medicine; Visit Provider Nurse Practitioner Women's Health
DX: Z12.4 Encounter for screening for malignant neoplasm of cervix (principal)
CPT/HCPCS: 87624; 88175; G0145

== ENCOUNTER → 2025-06-11 | Outpatient (CLI) | payer BC, SELFPAY ==
--- NOTE | 2025-06-11 07:50 | US_ITS ---
PROCEDURE: PELVIC W/ TRANSVAGINAL 06/11/2025 REASON FOR EXAM: LMP 05/21/2025. Abnormal uterine bleeding, menorrhagia. TECHNIQUE: Procedure Code: [id number] Modality: US Procedure: PELVIC W/ TRANSVAGINAL COMPARISON: None. FINDINGS: ENDOMETRIUM: Homogeneous normal thickness of 13.0 mm. No abnormal endometrial color Doppler flow. UTERUS: Normal size and contour measuring 12.6 x 6.7 x 5.8 cm. No fibroid detected. CERVIX: Normal size and contour. Small anechoic cervical nabothian cysts. RIGHT OVARY: Normal size and appearance measuring 3.2 x 3.0 x 1.2 cm (volume 6.3 mL). Normal follicles. Normal blood flow. No adnexal mass. LEFT OVARY: Enlarged measuring 4.8 x 3.4 x 2.2 cm (volume 18.9 mL). Normal follicles with a 2.1 cm dominant follicle. Normal blood flow. No adnexal mass. FREE FLUID: No free fluid. URINARY BLADDER: Normal morphology with a volume of 507 mL. US/Pelvic w/ Transvaginal IMPRESSION: No abnormal findings to account for the patient's symptoms. Reading Location: [id number]
--- OUTSIDE RECORDS SUMMARY | 2025-06-11 08:03 | XMS RPT_ITS | CCD ---
Author Organization [facility] CliniSytn Care Team Providers Care Go Go Dancer Name Role Phone Unavailable Primary Care Provider Unavailannika e ALLA DENISE Referring Unavailable Braulio BHAT, Dr. Infante Primary Care Provider [phone] Dr. Naresh Ramsey MD Referring Provider [phone] Andre DETAIL SERGEANT-CTavia Attending Provider Andre DETAIL SERGEANT-CTavia Referring Provider Dr. Tony Sanchez MD Attending Provider [phone] Dr. Naresh Ramsey MD Attending Provider Tavia Powell Attending Unavailable Naresh Ramsey Referring Unavailable Ramsey, Naresh Primary Care Unavailable Ramsey, Naresh Referring Unavailable Ramsey, Naresh Attending Unavailable Braulio, Naresh Primary Care Unavailable Braulio, Naresh Primary Care Unavailable Tavia Powell Attending Unavailable Tavia Powell Referring Unavailable Tony Sanchez Attending Unavailable Naresh Ramsey Primary Care Unavailable Tavia Powell Attending Unavailable Braulio, Naresh Referring Unavailable Ramsey, Naresh Primary Care Unavailable Ramsey, Naresh Primary Care Unavailable SibAlla damian V Referring Unavailable Alla Denise V Attending Unavailable Tavia Powell Attending Unavailable Tavia Powell Referring Unavailable Braulio, Naresh Primary Care Unavailable Tavia Powell Attending Unavailable Naresh Ramsey Primary Care Unavailable Tavia Powell Referring Unavailable Medications Current Medications Medication Drug Class(es) Dates Sig (Normalized) Sig (Original) [id number] actuat albuterol 0.09 mg/actuat metered dose inhaler (9 sources) beta2-Adrenergic Agonist Start: 09-14-2023 take 2 puff(s) by inhalation every four hours as needed for wheezing albuterol HFA (PROVENTIL HFA, VENTOLIN HFA) 90 mcg/actuation inhaler Indications: URI, acute , Wheezing Inhale 2 Puffs as instructed every 4 hours as needed for wheezing/shortnes s of breath. 1 Each 09/14/2023 Active Start: 01-20-2021 End: 09-01-2024 Albuterol Sulfate (Ventolin Hfa) 1 INHALER inhaler Discontinued 1 - 2 NMA INHALATION EVERY 4 HOURS NEEDED as needed for Wheezing January 20, 2021 12:00am September 01, 2024 9:18am Start: 01-20-2021 take 1 puff(s) by in halation every four hours as needed Albuterol Sulfate (Ventolin Hfa) 1 INHALER inhaler Active 1 - 2 PUFF INHALATION EVERY 4 HOURS NEEDED January 19, 2021 11:00pm Start: 06-21-2013 take 2 puff(s) by in halation every six hours as needed for wheezing albuterol HFA 90 mcg/actuation inhaler Indications: Acute bronchitis Inhale 2 Puffs as instructed every 6 hours as needed for Wheezing/Shortness of Breath. 1 Inhaler 2 06/21/2013 Active Comment on above: Inhale 2 Puffs as in structed every 6 hours as needed for Wheezing/Shortness of Breath. azelastine hydrochloride 0.5 mg/ml ophthalmic solution (2 sources) Histamine-1 Receptor Antagonist Start: 01-03-20 take 1 drop(s) into the eye(s) twice daily Azelastine HCl (OPTIVAR) 0.05 % ophthalmic solution Use 1 Drop in both eyes twice daily. 1 Bottle 0 01/03/2016 Active Start: 01-03-2016 take 1 drop(s) into the eye(s) twice daily Azelastine HCl (OPTIVAR) 0.05 % ophthalmic solution Use 1 Drop in both eyes twice daily. 1 Bottle 0 01/03/2016 Active Comment on above: Use 1 Drop in both e yes twice daily. ferrous sulfate 325 mg oral tablet (1 source) Start: 11-03-2024 take 1 tablet by mouth twice daily Ferrous Sulfate 325 mg (65 mg iron) tablet Active 325 mg PO TWICE A DAY November 03, 2024 12:00am Fluticasone Propion-Salmeterol (3 sources) Corticosteroid, beta2-Adrenergic Agonist Start: 09-01-2024 Fluticasone Propion-Salmeterol (Advair Diskus) 100-50 mcg/dose blister with device Active 1 NMA INHALATION TWICE A DAY September 01, 2024 12:00am Inhalational Spacing Device (1 source) Start: 11-17-2021 End: 11-17-2021 Inhalational Spacing Device 1 Device one time only for 1 dose. 1 Each 0 11/17/2021 11/17/2021 Active Comment on above: 1 Device one time on ly for 1 dose. multivit,thx,calcium,i akilah,mins (MULTIVITAMIN AND MINERAL ORAL) (2 sources) multivit,thx,julien cium, iron,mins (MULTIVITAMIN AND MINERAL ORAL) Take by mouth. Active multivit,thx,julien cium,iron,mins (MULTIVITAMIN AND MINERAL ORAL) Take by mouth. 0 Active Comment on above: Take by mouth. predniSONE 20 mg oral tablet (2 sources) Start: 11-17-2021 End: 11-22-2021 take 2 tablets by mouth once daily predniSONE (DELTASONE) 20 mg tablet Take 2 tablets by mouth once daily for 5 days. 10 tablet 0 11/17/2021 11/22/2021 Active Start: 01-03-2016 End: 11-17-2021 predniSONE (DELTASONE) 10 mg tablet Take 4 tabs daily for 3 days, then 2 tabs daily for 3 days, then 1 tab daily for 3 days with food. 21 tablet 0 01/03/2016 11/17/2021 Discontinued Comment on above: Take 2 tablets by [facility] once daily for 5 days. Take 4 tabs daily fo r 3 days, then 2 tabs daily for 3 days, then 1 tab daily for 3 days with food. Varenicline Tartrate 0.5 mg (11)- 1 mg (42) tablets,dose pack (2 sources) Start: 11-03-2024 Varenicline Tartrate 0.5 mg (11)- 1 mg (42) tablets,dose pack Active {tbl} PO As Directed November 03, 2024 12:00am Completed/Discontinued Medications Medication Drug Class(es) Dates Sig (Normalized) Sig (Original) benzonatate 100 mg oral capsule (5 sources) Non-narcotic Antitussive Start: 01-20-2021 End: 09-01-2024 take 2 capsules by mouth three times daily as needed for cough Benzonatate 100 MG capsule Discontinued 200 mg PO 3 TIMES DAILY NEEDED as needed for Cough January 20, 2021 12:00am September 01, 2024 9:18am Start: 01-20-2021 take 200 mg by mouth three times daily as needed Benzonatate Active 200 MG PO 3 TIMES DAILY NEEDED January 19, 2021 11:00pm clindamycin 300 mg oral capsule (5 sources) Lincosamide Antibacterial Start: 02-02-2014 End: 09-01-2024 take 1 capsule by mouth every six hours Clindamycin Hcl (Cleocin Hcl) 300 MG capsule Discontinued 300 mg PO EVERY 6 HOURS February 02, 2014 12:00am September 01, 2024 9:18am etodolac 300 mg oral capsule (5 sources) Nonsteroidal Anti-inflammatory Drug Start: 02-02-2014 End: 09-01-2024 take 1 capsule by mouth three times daily at mealtime as needed for pain Etodolac 300 MG capsule Discontinued 300 mg PO 3 TIMES DAILY WITH MEALS as needed for Pain February 02, 2014 12:00am September 01, 2024 9:18am Problems Active Problems Problem Classification Problem Date Documented Da te Episodic/Chronic Acute bronchitis (5 sources) Acute bronchitis co-occurrent with wheeze; Translations: [Acute bronchitis, unspecified] 01-20-2021 Episodic Coagulation and hemorrhagic disorders (2 sources) Platelet count below reference range; Translations: [Thrombocytopenia, unspecified] 09-18-2007 Chronic Deficiency and other anemia (1 source) Iron deficiency anemia, unspecified; Translations: [Iron deficiency anemia, unspecified] Onset: 12-03-2024 Episodic Nutritional deficiencies (2 sources) Iron deficiency; Translations: [Iron deficiency] 11-03-2024 Episodic Other hematologic conditions (3 sources) H/O: anemia - iron deficient; Translations: [Personal history of diseases of the blood and blood-forming organs and certain disorders involving the immune mechanism] 09-01-2024 Episodic Other hematologic conditions (3 sources) History of anemia; Translations: [Personal history of diseases of the blood and blood-forming organs and certain disorders involving the immune mechanism] 09-01-2024 Episodic Other lower respiratory disease (1 source) Cough; Translations: [Cough] Episodic Other lower respiratory disease (8 sources) Dyspnea; Translations: [Shortness of breath] 09-01-2024 Episodic Other lower respiratory disease (8 sources) Hypoxemia; Translations: [Hypoxemia] 09-01-2024 Episodic Other lower respiratory disease (6 sources) Multiple nodules of lung; Translations: [Other nonspecific abnormal finding of lung field] 09-01-2024 Episodic Comment on above: Multiple <6mm nodule s on 01/2024 CT Other lower respiratory disease (1 source) Other nonspecific abnormal finding of lung field; Translations: [Other nonspecific abnormal finding of lung field] Onset: 01-22-2025 Episodic Residual codes; unclassified (8 sources) Daytime hypersomnia; Translations: [Hypersomnia, unspecified] 09-01-2024 Chronic Residual codes; unclassified (2 sources) Periodic limb movement disorder; Translations: [Periodic limb movement disorder] 09-01-2024 Chronic Residual codes; unclassified (6 sources) Periodic leg movements of sleep ; Translations: [Periodic limb movement disorder] 09-01-2024 Chronic Substance-related disorders (2 sources) Tobacco user; Translations: [Nicotine dependence, unspecified, uncomplicated] Onset: 10-02-2008 10-02-2008 Chronic Past or Other Problems Problem Classification Problem Date Documented Da te Episodic/Chronic Other lower respiratory disease (1 source) Shortness of breath; Translations: [Shortness of breath] Onset: 10-05-2024 Episodic Other nutritional; endocrine; and metabolic disorders (2 sources) Overweight; Translations: [Overweight] Onset: 09-18-2007 09-18-2007 Episodic Results Test Name Value Interpretation Reference Range Facility Absolute lymphocyte countOrd ered By: Naresh Ramsey on 11-30-2024 Lymphocytes Auto (Unsp spec) [#/Vol] 1.15 10*3/uL 0.83-4.51 [facility] Absolute neutrophil countOrd ered By: Naresh Ramsey on 11-30-2024 Neutrophils (Bld) [#/Vol] 4.2 10*3/uL 2.0-7.7 [facility] Automated lymphocyte count a s percentage of total leukocytesOrdered By: Naresh Ramsey on 11-30-2024 Lymphocytes/100 WBC Auto (Unsp spec) 18.8 % Low 19-41 [facility] Basophil percentageOrdered B y: Naresh Ramsey on 11-30-2024 Basophils/100 WBC (Bld) 1.3 % High 0-1 [facility] Blood manual differential co mment interpretation (narrative result)Ordered By: Naresh Ramsey on 11-30-2024 Manual differential comment Luiz (Bld) [Interp] SCANNED [facility] Blood polychromasia detectio n by light microscopyOrdered By: Naresh Ramsey on 11-30-2024 Polychromasia LM Ql (Bld) 1+ [facility] CBC W/Diff, Automatedon 11-15 Anisocytosis Ql (Bld) 1+ Normal [facility] Comment on above: Performed By: #### L 503.6550, L100.0100, L503.6030 ####[facility] [address] [place], [address] PLT EST ADEQUATE Normal ADEQ [facility] Comment on above: Performed By: #### L 503.6550, L100.0100, L503.6030 ####[facility] [address] [place], [address] POLYCHROMASIA 1+ Normal [facility] Comment on above: Performed By: #### L 503.6550, L100.0100, L503.6030 ####[facility] [address] [place], [address] SMEAR COMMENT SCANNED Normal [facility] Comment on above: Performed By: #### L 503.6550, L100.0100, L503.6030 ####[facility] [address] [place], [address] Eosinophil percentageOrdered By: Naresh Ramsey on 11-30-2024 Eosinophils/100 WBC (Bld) 2.8 % 0-5 [facility] Erythrocyte distribution wid th ratioOrdered By: Naresh Ramsey on 11-30-2024 Erythrocyte distribution width (RBC) [Ratio] TNP [facility] Comment on above: Test not performed Erythrocyte distribution wid th standard deviationOrdered By: Naresh Ramsey on 11-30-2024 Erythrocyte distribution width (RBC) [Ratio] Not Reportable [facility] Ferritinon 11-30-2024 Ferritin [Mass/Vol] 33 ng/mL Normal 22-378 [facility] Comment on above: Performed By: #### L 503.6550, L100.0100, L503.6030 ####[facility] [address] [place], [address] Hematocrit Auto (Bld) [Volum e fraction]Ordered By: Naresh Ramsey on 11-30-2024 Hematocrit (Bld) [Volume fraction] 42.4 % 37-47 [facility] Hemoglobin measurementOrdere d By: Naresh Ramsey on 11-30-2024 Hemoglobin (Bld) [Mass/Vol] 12.3 g/dL 12.0-15.0 [facility] Immature granulocytes/100 WB C Auto (Bld)Ordered By: Naresh Ramsey on 11-30-2024 Immature granulocytes/100 WBC (Bld) 0.500 % 0.0-0.9 [facility] Comment on above: IG% - Immature Granu locytes (promyelocytes, myelocytes and metamyelocytes) > 1% indicates that a LEFT SHIFT is Present. Iron measurement (mass/mass) Ordered By: Naresh Ramsey on 11-30-2024 Iron (Unsp spec) [Mass/Mass] 136 ug/dL 50-170 [facility] Iron+Iron Binding Capacityon 11-30-2024 Iron [Mass/Vol] 136 ug/dL Normal 50-170 [facility] Comment on above: Performed By: #### L 503.6550, L100.0100, L503.6030 #### [facility] [address] [place], [address] IRON SATURATION 38.0 Normal 13-59 [facility] Comment on above: Performed By: #### L 503.6550, L100.0100, L503.6030 #### [facility] [address] [place], [address] TIBC 354 ug/dL Normal 250-450 [facility] Comment on above: Performed By: #### L 503.6550, L100.0100, L503.6030 #### [facility] [address] [place], [address] UIBC 218 ug/dL Low 228-428 [facility] Comment on above: Performed By: #### L 503.6550, L100.0100, L503.6030 #### [facility] [address] [place], [address] Laboratory - Hematology and Cell countsOrdered By: Naresh Ramsey on 11-30-2024 Anisocytosis Ql (Bld) 1+ [facility] MCV (mean corpuscular volume ) determinationOrdered By: Naresh Ramsey on 11-30-2024 MCV (RBC) [Entitic vol] 75.3 fL Low 81-99 [facility] Mean corpuscular hemoglobin (MCH) determinationOrdered By: Naresh Ramsey on 11-30-2024 MCH (RBC) [Entitic mass] 21.8 pg Low 27.0-32.0 [facility] Mean corpuscular hemoglobin concentration (MCHC) determinationOrdered By: Naresh Ramsey on 11-30-2024 MCHC (RBC) [Mass/Vol] 29.0 g/dL Low 32-36 [facility] Mean platelet volume determi nationOrdered By: Naresh Ramsey on 11-30-2024 Mean platelet volume determination TNP [facility] Comment on above: Test not performed Monocyte percentageOrdered B y: Naresh Ramsey on 11-30-2024 Monocytes/100 WBC (Bld) 8.5 % 0-10 [facility] Neutrophil percentageOrdered By: Naresh Ramsey on 11-30-2024 Neutrophils/100 WBC (Bld) 68.1 % 47-70 [facility] No Panel InformationOrdered By: Naresh Ramsey on 11-30-2024 Unsaturated Iron Binding Capacity 218 ug/dL Low 228-428 [facility] Nucleated red blood cell per centageOrdered By: Naresh Ramsey on 11-30-2024 Nucleated RBC/100 WBC (Bld) [Ratio] 0 % 0-5 [facility] Platelet countOrdered By: Max Ramsey on 06-16-2025 Platelets (Bld) [#/Vol] 210 10*3/uL 150-450 [facility] Platelet estimateOrdered By: Naresh Ramsey on 11-30-2024 Platelets LM Ql (Bld) ADEQUATE ADEQ [facility] RBC Auto (Bld) [#/Vol]Ordere d By: Naresh Ramsey on 11-30-2024 RBC (Bld) [#/Vol] 5.63 10*6/uL High 4.2-5.4 [facility] Serum or plasma ferritin leo surement (mass/volume)Ordered By: Naresh Ramsey on 11-30-2024 Ferritin [Mass/Vol] 33 ng/mL 22-378 [facility] Serum or plasma iron saturat ion measurement (mass fraction)Ordered By: Naresh Ramsey on 11-30-2024 Iron saturation [Mass fraction] 38.0 % 13-59 [facility] White blood cell (WBC) count Ordered By: Naresh Ramsey on 11-30-2024 WBC (Bld) [#/Vol] 6.1 10*3/uL 4.4-11.0 [facility] Pulmonary Visit Reporton Pulmonary Visit Report [facility] [place] [address] [place] [address] OFFICE VISIT Date of Service: 11/03/24 MR#: [id number] Acct: [id number] Name: GERMÁN HANKINS Rep #: [id number] : 1980 Provider: Tavia Powell NP Age/Sex: 44/F [facility] Status: Signed Assessment and Plan Assessment and Plan (1) Periodic limb movement disorder: Status: Acute Plan: PLMD will be treated by treating underlying iron deficiency first. Ferrous sulfate BID was started today. (2) Iron deficiency: Status: Acute Plan: Await response to ferrous sulfate twice daily. The use of this medication potential side effects were reviewed with patient today. I have recommended repeating a ferritin level prior to follow-up in 4 months. I have asked for the patient to follow-up with her PCP regarding the results of the recent lab work. The patient may need further testing for the anemia that is present on today's exam. The patient does report that her stools are dark in color, a colonoscopy may be warranted. (3) Hypoxemia: Status: Acute Plan: It is unclear why nocturnal hypoxemia is occurring, anemia could be contributing to this. The patient could have hypoventilation syndrome present. The patient does not want to proceed with ABG and having oxygen present once again in her home for use at night. The patient may have difficulty keeping oxygen tubing on her face if PLMD is active. I have recommended working to treat PLMD by treating underlying iron deficiency at this time with ferrous sulfate. (4) Daytime hypersomnia: Status: Acute Plan: The patient has shiftwork disorder along with insufficient sleep present contributing to daytime hypersomnia. She has PLMD from iron deficiency contributing to poor sleep quality. She understands the importance of obtaining at least 6 hours of sleep per day. Her goal is currently 7. Unfortunately, this will need to be broken into 2 increments. Continue to monitor as iron levels improve. (5) Shortness of breath: Status: Acute Plan: Echocardiogram is within normal limits. Complete smoking cessation is encouraged today, this may be contributing to her shortness of breath. Anemia is also likely contributing to her shortness of breath as well. Orders: Orders Ferritin 3 Months E61.1 - Iron deficiency Medications: New ferrous sulfate 325 mg PO BID 60 tabs 6RF Plan Details Follow Up: 4 months. (LMR) HPI HPI Comments Details: Patient is a 44 year old female who presents for follow-up of recent testing. She is currently on room air and ambulatory and under the care of of Dr. Ramsey. She is able to have her sleep scheduled at night. She goes to bed at 1am and awakens at 5am. She is cleaning in the morning and evening. She will nap for 2 hours during the day. In the past she was placed on Iron in 2019, she reports no recent follow up. She indicates that her legs move in evening. They feel achy and her feet felt like water weights. She will try stretching and walking with benefit. She does awaken in the morning and feels tired. She saw Dr. Denise and had a PSG on 10/05/23 which showed hypersomnia, hypoxemia, PLMD. There was no evidence of apnea on the study. Patient states that she has had multiple test but has not had any answers yet . Patient also indicates that she had a CT scan done at [facility] which showed multiple nodules. This scan was from January 31, 2024 which was a chest CT with contrast which showed smooth bronchial wall thickening which may represent chronic airway inflammation. Both lungs were well-inflated. There were a few small bilateral lung nodules including a 4 mm nodule in the right lower lobe superior segment, a 4 mm right middle lobe nodule, a 2 x 4 mm subpleural nodule in the left lower lobe, a 2 to 3 mm left lower lobe nodule, a 2 mm right upper lobe nodule and a few punctate nodules along the left major fissure. There is a subcentimeter calcified granuloma in the left upper lobe. There are multiple mildly enlarged mediastinal bilateral hilar lymph nodes which may represent sarcoidosis. QuantiFERON gold and FRANK level were negative from February 07, 2024. She is a currently on Chantix and pursuing smoking cessation. She is now a someday smoker . She started at age 18, smoking household. She reports that at most she smoked 10 cigarettes per day. She tried Wellbutrin in the past for smoking cessation but did not want to be on an antidepressant so she then was changed to Chantix. Today she denies wheeze and cough. She reports that she only has shortness of breath if I run. She denies chest congestion. She denies chest pain and chest tightness. She denies fever, chills, body aches. Her ESS is 4. She is currently utilizing her generic Advair inhaler twice daily. She is not having difficulty with sore throat or hoar (more content not included)... Normal [facility] Echo Completeon 09-30-2024 Echo Complete [facility] [address] [place] [address] Echo Complete 09/30/24 1303 MR#: [id number] Acct: [id number] Name: GERMÁN HANKINS Rep #: [id number] : 1980 44 From: Tony Sanchez MD Attending Dr: Tavia Powell NP Status: REG CL I Ordering Dr: Tavia Powell DETAIL SERGEANT-C Date: 09/30/24 Location: [facility] Sex: F C Admitted: Reason For Study Reason For Study: SOB Procedure This was a 2D Doppler, Color Flow transthoracic echocardiogram. Exam performed in department. Left Ventricle Normal LV size. Left ventricular systolic function is normal. The left ventricular ejection fraction is 65 %. No regional wall motion abnormalities noted. Right Ventricle Normal RV size. Normal systolic function. Atria Normal left atrium. Normal right atrium. Mitral Valve Normal mitral valve. Tricuspid Valve Normal tricuspid valve. Aortic Valve Normal aortic valve. Trisinus/trileaflet aortic valve. Pulmonic Valve Normal pulmonic valve. Great Vessels Normal aortic root. The pulmonary artery is normal size. Inferior vena cava collapse with respiration. Pericardium/Pleural No pericardial effusion. MMode/2D Measurements Calculations LVIDd: 5.0 cm IVSd: 0.87 cm Ao root diam: 3.1 cm LVIDs: 3.3 cm LVPWd: 0.87 cm RVDd: 3.0 cm FS: 34.1 % LAV(MOD-bp): 61.4 ml LVAd ap4: 31.6 cm2 SV(MOD-sp4): 67.5 ml LAV(MOD-bp) Indexed: 34.0 ml/m2 LVLd ap4: 7.9 cm SI(MOD-sp4): 37.3 ml/m2 LAV(MOD-sp2): 59.2 ml EDV(MOD-sp4): 102.8 ml LAV(MOD-sp4): 59.1 ml EDV(sp4-el): 106.8 ml LVAs ap4: 16.0 cm2 LVLs ap4: 6.2 cm ESV(MOD-sp4): 35.3 ml ESV(sp4-el): 35.1 ml EF(MOD-sp4): 65.7 % EF(sp4-el): 67.2 % SV(sp4-el): 71.7 ml LA A4 area: 18.8 cm2 LA dimension(2D): 4.2 cm RA A4 area: 15.2 cm2 TAPSE: 2.8 cm Time Measurements MV dec time: 0.23 sec Doppler Measurements Calculations MV E max alexander: 102.0 cm/sec Lat Peak E' Alexander: 11.6 cm/sec Med Peak E' Alexander: 10.6 cm/sec MV A max alexander: 82.5 cm/sec E/E' lat: 8.8 E/E' med: 9.6 MV E/A: 1.2 MV V2 max: 130.7 cm/sec MV P1/2t max alexander: 139.8 cm/sec Ao V2 max: 182.2 cm/sec MV max P.8 mmHg MV P1/2t: 72.4 msec Ao max P.3 mmHg MV V2 mean: 64.2 cm/sec Ao V2 mean: 118.6 cm/sec MV mean P.0 mmHg MV dec slope: 565.3 cm/sec2 Ao mean P.6 mmHg MV V2 VTI: 32.1 cm MVA(P1/2t): 3.0 cm2 Ao V2 VTI: 38.8 cm AV (velocity ratio): 0.86 LV V1 max: 157.0 cm/sec PA V2 max: 116.2 cm/sec LV V1 max P.9 mmHg PA V2 mean: 87.6 cm/sec LV V1 mean P.1 mmHg LV V1 mean: 104.5 cm/sec LV V1 VTI: 33.4 cm ECHO/Echo Complete Interpretation Summary Normal LV size. Left ventricular systolic function is normal. The left ventricular ejection fraction is 65 %. Structurally normal valves. Ordering Physician: Tavia Powell Referring Physician: Naresh Ramsey Performed By: Sarah Beth Bhagat, RDCS, RVT 09/30/24 1640 Date Tony Sanchez MD CC: Dr. Naresh Ramsey MD; Tavia Powell NP Date Dictated: 09/30/24 1303 Date Transcribed: 09/30/24 1640 Ship Runner: Signed Normal [facility] Absolute lymphocyte countOrd ered By: APRIL Powell on 09-01-2024 Lymphocytes Auto (Unsp spec) [#/Vol] 1.35 10*3/uL 0.83-4.51 [facility] Absolute neutrophil countOrd ered By: APRIL Powell on 09-01-2024 Neutrophils (Bld) [#/Vol] 5.8 10*3/uL 2.0-7.7 [facility] Automated lymphocyte count a s percentage of total leukocytesOrdered By: APRIL Powell on 09-01-2024 Lymphocytes/100 WBC Auto (Unsp spec) 16.4 % Low 19-41 [facility] Basophil percentageOrdered B y: APRIL Powell on 09-01-2024 Basophils/100 WBC (Bld) 1.0 % 0-1 [facility] CBC W/Diff, Automatedon 08-15 Absolute Lymph 1.35 X10 3/uL Normal 0.83-4.51 [facility] Comment on above: Performed By: #### L 100.0100, L503.6550 #### [facility] [address] [place], [address] Absolute Neut 5.8 X10 3/uL Normal 2.0-7.7 [facility] Comment on above: Performed By: #### L 100.0100, L503.6550 #### [facility] [address] [place], [address] Basophils/100 WBC (Bld) 1.0 % Normal 0-1 [facility] Comment on above: Performed By: #### L 100.0100, [id number] #### [facility] [address] [place], [address] Eosinophils/100 WBC (Bld) 3.0 % Normal 0-5 [facility] Comment on above: Performed By: #### L 100.0100, L503.6550 #### [facility] [address] [place], [address] Erythrocyte distribution width (RBC) [Ratio] 18.1 % High 11.6-14.6 [facility] Comment on above: Performed By: #### L 100.0100, L503.6550 #### [facility] [address] [place], [address] Hematocrit (Bld) [Volume fraction] 34.8 % Low 37-47 [facility] Comment on above: Performed By: #### L 100.0100, L503.6550 #### [facility] [address] [place], [address] Hemoglobin (Bld) [Mass/Vol] 9.9 g/dL Low 12.0-15.0 [facility] Comment on above: Performed By: #### L 100.0100, L503.6550 #### [facility] [address] [place], [address] IG% 0.400 Normal 0.0-0.9 [facility] Comment on above: Result Comment: IG% - Immature Granulocytes (promyelocytes, myelocytes and metamyelocytes) > 1% indicates that a LEFT SHIFT is Present. Performed By: #### L 100.0100, L503.6550 #### [facility] [address] [place], [address] Lymphocytes/100 WBC (Bld) 16.4 % Low 19-41 [facility] Comment on above: Performed By: #### L 100.0100, L503.6550 #### [facility] [address] [place], [address] MCH (RBC) [Entitic mass] 18.4 pg Low 27.0-32.0 [facility] Comment on above: Performed By: #### L 100.0100, L503.6550 #### [facility] [address] [place], [address] MCHC (RBC) [Mass/Vol] 28.4 g/dL Low 32-36 [facility] Comment on above: Performed By: #### L 100.0100, L503.6550 #### [facility] [address] [place], [address] MCV (RBC) [Entitic vol] 64.6 fL Low 81-99 [facility] Comment on above: Performed By: #### L 100.0100, L503.6550 #### [facility] [address] [place], [address] Monocytes/100 WBC (Bld) 8.8 % Normal 0-10 [facility] Comment on above: Performed By: #### L 100.0100, L503.6550 #### [facility] [address] [place], [address] Neutrophils/100 WBC (Bld) 70.4 % High 47-70 [facility] Comment on above: Performed By: #### L 100.0100, L503.6550 #### [facility] [address] [place], [address] Nucleated RBC (Bld) [#/Vol] 0 10*3/uL Normal 0-5 [facility] Comment on above: Performed By: #### L 100.0100, L503.6550 #### [facility] [address] [place], [address] Platelets (Bld) [#/Vol] 205 10*3/uL Normal 150-450 [facility] Comment on above: Performed By: #### L 100.0100, L503.6550 #### [facility] [address] [place], [address] RBC (Bld) [#/Vol] 5.39 10*6/uL Normal 4.2-5.4 [facility] Comment on above: Performed By: #### L 100.0100, L503.6550 #### [facility] [address] [place], [address] RDW SD 38.8 fl Normal 35.1-43.9 [facility] Comment on above: Performed By: #### L 100.0100, L503.6550 #### [facility] [address] [place], [address] WBC (Bld) [#/Vol] 8.3 10*3/uL Normal 4.4-11.0 [facility] Comment on above: Performed By: #### L 100.0100, L503.6550 #### [facility] [address] [place], [address] Eosinophil percentageOrdered By: APRIL Powell on 09-01-2024 Eosinophils/100 WBC (Bld) 3.0 % 0-5 [facility] Erythrocyte distribution wid th ratioOrdered By: APRIL Powell on 09-01-2024 Erythrocyte distribution width (RBC) [Ratio] 18.1 % High 11.6-14.6 [facility] Erythrocyte distribution wid th standard deviationOrdered By: APRIL Powell on 09-01-2024 Erythrocyte distribution width (RBC) [Entitic vol] 38.8 fL 35.1-43.9 [facility] Erythrocyte distribution width (RBC) [Ratio] 38.8 fl 35.1-43.9 [facility] Ferritinon 09-01-2024 Ferritin [Mass/Vol] 4 ng/mL Low 22-378 [facility] Comment on above: Performed By: #### L 100.0100, L503.6550 #### [facility] [address] [place], [address] Hematocrit Auto (Bld) [Volum e fraction]Ordered By: APRIL Powell on 09-01-2024 Hematocrit (Bld) [Volume fraction] 34.8 % Low 37-47 [facility] Hemoglobin measurementOrdere d By: APRIL Powell on 09-01-2024 Hemoglobin (Bld) [Mass/Vol] 9.9 g/dL Low 12.0-15.0 [facility] Immature granulocytes/100 WB C Auto (Bld)Ordered By: APRIL Powell on 09-01-2024 Immature granulocytes/100 WBC (Bld) 0.400 % 0.0-0.9 [facility] Comment on above: IG% - Immature Granu locytes (promyelocytes, myelocytes and metamyelocytes) > 1% indicates that a LEFT SHIFT is Present. Lymphocytes Auto (Unsp spec) [#/Vol]Ordered By: APRIL Powell on 09-01-2024 Lymphocytes (Bld) [#/Vol] 1.35 10*3/uL 0.83-4.51 [facility] Lymphocytes/100 WBC Auto (Un sp spec)Ordered By: APRIL Powell on 09-01-2024 Lymphocytes/100 WBC (Bld) 16.4 % Low 19-41 [facility] MCV (mean corpuscular volume ) determinationOrdered By: APRIL Powell on 09-01-2024 MCV (RBC) [Entitic vol] 64.6 fL Low 81-99 [facility] Mean corpuscular hemoglobin (MCH) determinationOrdered By: APRIL Powell on 09-01-2024 MCH (RBC) [Entitic mass] 18.4 pg Low 27.0-32.0 [facility] Mean corpuscular hemoglobin concentration (MCHC) determinationOrdered By: APRIL Powell on 09-01-2024 MCHC (RBC) [Mass/Vol] 28.4 g/dL Low 32-36 [facility] Monocyte percentageOrdered B y: APRIL Powell on 09-01-2024 Monocytes/100 WBC (Bld) 8.8 % 0-10 [facility] Neutrophil percentageOrdered By: APRIL Powell on 09-01-2024 Neutrophils/100 WBC (Bld) 70.4 % High 47-70 [facility] Nucleated red blood cell per centageOrdered By: APRIL Powell on 09-01-2024 Nucleated RBC/100 WBC (Bld) [Ratio] 0 % 0-5 [facility] Platelet countOrdered By: APRIL Powell on 09-01-2024 Platelets (Bld) [#/Vol] 205 10*3/uL 150-450 [facility] Pulmonary Visit Reporton Pulmonary Visit Report [facility] [place] [address] [place] [address] OFFICE VISIT Date of Service: 09/01/24 MR#: [id number] Acct: [id number] Name: GERMÁN HANKINS Rep #: [id number] : 1980 Provider: Tavia Powell NP Age/Sex: 44/F Location: [facility].PM[facility] Status: Signed with Addenda ADDENDUM by Tavia Powell NP on 09/01/24 at 1604 Assessment and Plan Assessment and Plan (1) Daytime hypersomnia: Status: Acute (2) Hypoxemia: Status: Acute (3) Periodic limb movement disorder: Status: Acute (4) Shortness of breath: Status: Acute (5) Multiple pulmonary nodules: Status: Acute Comment: Multiple <6mm nodules on 01/2024 CT Plan: Repeat noncontrasted chest CT January 2025, ordered accordingly. Orders: Orders Echo Complete W/ Contrast Today R06.02 - Shortness of breath Ferritin Today R06.02 - Shortness of breath, Z86.2 - Personal history of diseases of the blood and blood-forming organs and certain disorders involving the immune mechanism CBC W/Diff, Automated Today Z86.2 - Personal history of diseases of the blood and blood-forming organs and certain disorders involving the immune mechanism Chest without Contrast 5 Months R91.8 - Other nonspecific abnormal finding of lung field Medications: Discontinued clindamycin HCl (Cleocin HCl) Discontinued Reason: Pt no longer taking 300 mg PO Q6H #40 0RF etodolac Discontinued Reason: Pt no longer taking 300 mg PO TIDCM PRN 30 caps 0RF Pain albuterol sulfate 90 mcg/actuation (Ventolin HFA) Discontinued Reason: Pt no longer taking 1 - 2 puffs inhalation Q4H PRN PRN #1 0RF Wheezing benzonatate Discontinued Reason: Pt no longer taking 200 mg (2 x 100 mg) PO TID PRN PRN 20 CAPSULES 0RF Cough Plan Details Follow Up: 6 Weeks (LMR) 09/01/24 1604 Date Tavia Powell cc: Dr. Naresh Ramsey MD * Signed Assessment and Plan Assessment and Plan (1) Daytime hypersomnia: Status: Acute Plan: I believe that daytime hypersomnia is present because of patient's work schedule. 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 Insufficient sleep is also present. I have discussed good sleep hygiene with patient today. 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 (2) Hypoxemia: Status: Acute Plan: It is unclear why nocturnal hypoxemia is occurring. The patient could have hypoventilation syndrome present. I have discussed the consideration of an ABG and having oxygen present once again in her home for use at night. The patient does not want to proceed with this direction at this time. I have discussed the adverse effects and risks of uncontrolled nocturnal hypoxemia with the patient today. The patient may have difficulty keeping tubing on her face if PLMD is active. I have recommended working to treat PLMD at this time. (3) Periodic limb movement disorder: Status: Acute Plan: I have recommended obtaining a CBC with ferritin to determine if iron deficiency is present. The patient may have response if this is present and then treated in regards to the active limb movement disorder that was present on the PSG. (4) Shortness of breath: Status: Acute Plan: I have recommended an echocardiogram as patient is also indicating that she has shortness of breath with exertion. Complete smoking cessation is encouraged today. I do believe that this will improve her respiratory symptoms if she can complete smoking cessation. She is to begin the Chantix that she has already been prescribed. Orders: Orders Echo Complete W/ Contrast Today R06.02 - Shortness of breath Ferritin Today R06.02 - Shortness of breath, Z86.2 - Personal history of diseases of the blood and blood-forming organs and certain disorders involving the immune mechanism CBC W/Diff, Automated Today Z86.2 - Personal history of diseases of the blood and blood-forming organs and certain disorders involving the immune mechanism Medications: Discontinued clindamycin HCl (Cleocin HCl) Discontinued Reason: Pt no longer taking 300 mg PO Q6H #40 0RF etodolac Discontinued Reason: Pt no longer taking 300 mg PO TIDCM PRN 30 caps 0RF Pain albuterol sulfate 90 mcg/actuation (Ventolin HFA) Discontinued Reason: Pt no longer taking 1 - 2 puffs inhalation Q4H PRN PRN #1 0RF Wheezing benzonatate Discontinued Reason: Pt no longer taking 200 mg (2 x 100 mg) PO TID PRN PRN 20 CAPSULES 0RF Cough Plan Details Follow Up: 6 Weeks (LMR) HPI HPI Comments Details: Patient is a 44 year old female who presents to evaluation of sleep disordered breathing. She is currently on room air and ambulatory and under the care of of Dr. Ramsey. Initially the patient reported to her PCP that she would power nap and awaken and heart was racing waking like (more content not included)... Normal [facility] RBC Auto (Bld) [#/Vol]Ordere d By: APRIL Powell on 09-01-2024 RBC (Bld) [#/Vol] 5.39 10*6/uL 4.2-5.4 [facility] Serum or plasma ferritin leo surement (mass/volume)Ordered By: APRIL Powell on 09-01-2024 Ferritin [Mass/Vol] 4 ng/mL Low 22-378 [facility] White blood cell (WBC) count Ordered By: APRIL Powell on 09-01-2024 WBC (Bld) [#/Vol] 8.3 10*3/uL 4.4-11.0 [facility] Angiotensin Convert Enzymeon 02-11-2024 ANGIOT-CONV.ENZ 53 U/L Normal 14-82 [facility] Comment on above: Result Comment: Perf ormed at: - [facility] [address] [id number] Menswear Salesperson: Kojo Vanessa PhD, Phone: [phone] Performed By: #### L 101.9900, [id number], L3100.6900, L3400.8000 #### [facility] [address] [place], [place], [id number] Quantiferon TB-Gold+on 02-10 QFT MITOGEN BRAYAN > 10.00 Normal . [facility] Comment on above: Performed By: #### L 101.9900, L501.6710, L3100.6900, L3400.8000 #### [facility] [address] [place], [address] QFT NIL VALUE 0.03 IU/mL Normal . [facility] Comment on above: Performed By: #### L 101.9900, L501.6710, L3100.6900, L3400.8000 #### [facility] [address] [place], [address] QFT TB GOLD+ Comment Normal . [facility] Comment on above: Result Comment: Dominick tiFERON-TB Gold Plus is a qualitative indirect test for M tuberculosis infection (including disease) and is intended for use in conjunction with risk assessment, radiography, and other medical and diagnostic evaluations. The QuantiFERON-TB Gold Plus result is determined by subtracting the Nil value from either TB antigen (Ag) value. The Mitogen tube serves as a control for the test. Performed By: #### L 101.9900, L501.6710, L3100.6900, L3400.8000 #### [facility] [address] [place], [address] QFT TB POS CRIT Negative Normal Negative [facility] Comment on above: Result Comment: No r esponse to M tuberculosis antigens detected. Infection with M tuberculosis is unlikely, but high risk individuals should be considered for additional testing (ATS/IDSA/CDC Clinical Practice Guidelines, 2017). The reference range is an Antigen minus Nil result of <0.35 IU/mL. The specimen received for QuantiFERON testing was incubated by the ordering institution. Specific procedures outlined in our Directory of Services and in the package insert for the QuantiFERON Gold (In Tube) test must be followed to enable for proper stimulation of cells for the production of interferon gamma. Chemiluminescence immunoassay methodology Performed By: #### L 101.9900, L501.6710, L3100.6900, L3400.8000 #### [facility] [address] [place], [address] QFT TB1+ AG BRAYAN 0.03 IU/mL Normal . [facility] Comment on above: Performed By: #### L 101.9900, L501.6710, L3100.6900, L3400.8000 #### [facility] [address] [place], [address] QFT TB2+ AG BRAYAN 0.04 IU/mL Normal . [facility] Comment on above: Performed By: #### L 101.9900, L501.6710, L3100.6900, L3400.8000 #### [facility] [address] [place], [address] CRPon 02-07-2024 C-REACTIVE PROT < 2.90 Normal 0.0-3.0 [facility] Comment on above: Result Comment: C-Re active Protein (CRP) provides useful information for the diagnosis, therapy and monitoring of inflammatory processes and associated diseases. For the evaluation of Relative Risk for Cardiovascular Disease, a High Sensitivity CRP (HSCRP) should be ordered. Performed By: #### L 101.9900, L501.6710, L3100.6900, L3400.8000 #### [facility] [address] [place], [address] Erythrocyte Sed Rateon 02-06 SED RATE 4 mm/hr Normal 0-30 [facility] Comment on above: Performed By: #### L 101.9900, L501.6710, L3100.6900, L3400.8000 #### [facility] [address] [place], [address] CNCOon 02-03-2024 CNCO Letter Text Normal [facility] CT CHEST W IVCONon CT CHEST W IVCON * * *Final Report* * * DATE OF EXAM: Jan 31 2024 11:40AM [facility] 0539 - CT CHEST W IVCON / PROCEDURE REASON: chest * * * * Physician Interpretation * * * * EXAMINATION: CHEST CT WITH CONTRAST CLINICAL HISTORY: 44-year-old woman with smoking history, chest tightness, shortness of breath, cough and wheezing Technique: Spiral CT acquisition of the chest from the thoracic inlet to the upper abdomen following IV contrast. MQ: CTCW_6 Contrast: 50 mL Omnipaque [address] Radiation dose: Integrated Dose-length product (DLP) for this visit = 219 mGy*cm CT Dose Reduction Employed: Automated exposure control(AEC) and iterative recon Comparison: None RESULT: Limitations: None. Lines, tubes, and devices: None. Lung parenchyma and airways: The trachea and major bronchi are patent. Smooth bronchial wall thickening in both lungs may represent chronic airway inflammation. Both lungs are well-inflated. There are a few small bilateral lung nodules including a 4 mm nodule in the right lower lobe superior segment (image 85), a 4 mm right middle lobe nodule (image 100), a 2 x 4 mm subpleural nodule in the left lower lobe (image 89), a 2-3 mm left lower lobe nodule (image 125), a 2 mm right upper lobe nodule (image 73) and a few punctate nodules along the left major fissure. There is a subcentimeter calcified granuloma in the left upper lobe (image 84). Pleural space: No pleural effusion. No pleural thickening. Lower neck, lymph nodes, and mediastinum: The imaged thyroid gland is unremarkable. No supraclavicular lymphadenopathy. No axillary lymphadenopathy. There are multiple mildly enlarged mediastinal and bilateral hilar lymph nodes which may represent sarcoidosis. For instance, a right hilar lymph node measures 15 mm in short axis (image 138), a right infrahilar lymph node measures 15 mm in short axis (image 175), a left hilar lymph node measures 14 mm in short axis (image 154), a lower right paratracheal lymph node measures 12 mm in short axis (image 124), an AP window lymph node measures 13 mm in short axis (image 112), and a subcarinal node measures 15 mm in short axis (image 138). Heart, pericardium, and thoracic vessels: The thoracic aorta and main pulmonary artery are normal in caliber. The cardiac chambers are normal in size. No coronary artery atherosclerotic calcifications are noted, although the study is not optimized for coronary assessment. No pericardial effusion or thickening. Bones and soft tissues: No destructive bone lesion. Chest wall is unremarkable. Upper abdomen: Reported separately Localizer images: No additional findings. IMPRESSION: Multiple mediastinal and bilateral hilar lymphadenopathy, indeterminate although suspicious for possible sarcoidosis. Additional considerations include granulomatous infections, lymphoproliferative conditions and metastatic disease. Suggest further workup and continued follow-up. Mild bronchial wall thickening in both lungs suggestive of chronic airway inflammation. Indeterminate sub-6 mm multiple bilateral lung nodules. Suggest follow-up given history of smoking with repeat CT in 12 months. Incidental Finding: Follow-up Acuity: Incidental Finding: Solid: <6 mm (solitary or multiple) Routing Code: N/A Recommendation: No imaging follow-up is recommended Time Frame: N/A Comments: If there are risk factors for lung malignancy, a follow-up chest CT exam could be obtained in 12 months --END OF FINDING-- Ship Runner: ROD Transcribe Date/Time: Jan 31 2024 2:25P Dictated by : MALACHI FLOYD MD This examination was interpreted and the report reviewed and electronically signed by: MALACHI FLOYD MD on Jan 31 2024 2:37PM EST [id number] ACTIONABLE Invalid Interpretation Code [facility] CT Chest W contrast IVOrdere d By: [facility] Provider on 01-31-2024 Interpretation and review of laboratory results Abnormal [facility] Radiology Result ACTIONABLE Abnormal [facility] Comment on above: This report contains an incidental or actionable finding. This finding may be a new finding separate from the reason your provider ordered the imaging test or it may be an already known finding that needs additional or continued follow-up. Because of this incidental or actionable finding, you may need another test (imaging or a different type of test). Please contact your provider for the next steps. [facility] CT Chest W contrast [place] IMPRESSION: Multiple mediastinal and bilateral hilar lymphadenopathy, indeterminate although suspicious for possible sarcoidosis. Additional considerations include granulomatous infections, lymphoproliferative conditions and metastatic disease. Suggest further workup and continued follow-up. Mild bronchial wall thickening in both lungs suggestive of chronic airway inflammation. Indeterminate sub-6 mm multiple bilateral lung nodules. Suggest follow-up given history of smoking with repeat CT in 12 months. Incidental Finding: Follow-up Acuity: Incidental Finding: Solid: <6 mm (solitary or multiple) Routing Code: N/A Recommendation: No imaging follow-up is recommended Time Frame: N/A Comments: If there are risk factors for lung malignancy, a follow-up chest CT exam could be obtained in 12 months --END OF FINDING-- Ship Runner: [facility] Transcribe Date/Time: Jan 31 2024 2:25P Dictated by : MALACHI FLOYD MD This examination was interpreted and the report reviewed and electronically signed by: MALACHI FLOYD MD on Jan 31 2024 2:37PM [facility] [[email or web address]] DIVISION OF RADIOLOGY * * *Final Report* * * DATE OF EXAM: Jan 31 2024 11:40AM [facility] 0539 - CT CHEST W IVCON / PROCEDURE REASON: chest * * * * Physician Interpretation * * * * EXAMINATION: CHEST CT WITH CONTRAST CLINICAL HISTORY: 44-year-old woman with smoking history, chest tightness, shortness of breath, cough and wheezing Technique: Spiral CT acquisition of the chest from the thoracic inlet to the upper abdomen following IV contrast. MQ: CTCW_6 Contrast: 50 mL Omnipaque [address] Radiation dose: Integrated Dose-length product (DLP) for this visit = 219 mGy*cm CT Dose Reduction Employed: Automated exposure control(AEC) and iterative recon Comparison: None RESULT: Limitations: None. Lines, tubes, and devices: None. Lung parenchyma and airways: The trachea and major bronchi are patent. Smooth bronchial wall thickening in both lungs may represent chronic airway inflammation. Both lungs are well-inflated. There are a few small bilateral lung nodules including a 4 mm nodule in the right lower lobe superior segment (image 85), a 4 mm right middle lobe nodule (image 100), a 2 x 4 mm subpleural nodule in the left lower lobe (image 89), a 2-3 mm left lower lobe nodule (image 125), a 2 mm right upper lobe nodule (image 73) and a few punctate nodules along the left major fissure. There is a subcentimeter calcified granuloma in the left upper lobe (image 84). Pleural space: No pleural effusion. No pleural thickening. Lower neck, lymph nodes, and mediastinum: The imaged thyroid gland is unremarkable. No supraclavicular lymphadenopathy. No axillary lymphadenopathy. There are multiple mildly enlarged mediastinal and bilateral hilar lymph nodes which may represent sarcoidosis. For instance, a right hilar lymph node measures 15 mm in short axis (image 138), a right infrahilar lymph node measures 15 mm in short axis (image 175), a left hilar lymph node measures 14 mm in short axis (image 154), a lower right paratracheal lymph node measures 12 mm in short axis (image 124), an AP window lymph node measures 13 mm in short axis (image 112), and a subcarinal node measures 15 mm in short axis (image 138). Heart, pericardium, and thoracic vessels: The thoracic aorta and main pulmonary artery are normal in caliber. The cardiac chambers are normal in size. No coronary artery atherosclerotic calcifications are noted, although the study is not optimized for coronary assessment. No pericardial effusion or thickening. Bones and soft tissues: No destructive bone lesion. Chest wall is unremarkable. Upper abdomen: Reported separately Localizer images: No additional findings. DIVISION OF RADIOLOGY [facility], [facility] * * *Final Report* * * DATE OF EXAM: Jan 31 2024 11:40AM [facility] [id number] - CT CHEST W IVCON / PROCEDURE REASON: chest * * * * Physician Interpretation * * * * EXAMINATION: CHEST CT WITH CONTRAST CLINICAL HISTORY: 44-year-old woman with smoking history, chest tightness, shortness of breath, cough and wheezing Technique: Spiral CT acquisition of the chest from the thoracic inlet to the upper abdomen following IV contrast. MQ: [id number] Contrast: 50 mL Omnipaque [address] Radiation dose: Integrated Dose-length product (DLP) for this visit = 219 mGy*cm CT Dose Reduction Employed: Automated exposure control(AEC) and iterative recon Comparison: None RESULT: Limitations: None. Lines, tubes, and devices: None. Lung parenchyma and airways: The trachea and major bronchi are patent. Smooth bronchial wall thickening in both lungs may represent chronic airway inflammation. Both lungs are well-inflated. There are a few small bilateral lung nodules including a 4 mm nodule in the right lower lobe superior segment (image 85), a 4 mm right middle lobe nodule (image 100), a 2 x 4 mm subpleural nodule in the left lower lobe (image 89), a 2-3 mm left lower lobe nodule (image 125), a 2 mm right upper lobe nodule (image 73) and a few punctate nodules along the left major fissure. There is a subcentimeter calcified granuloma in the left upper lobe (image 84). Pleural space: No pleural effusion. No pleural thickening. Lower neck, lymph nodes, and mediastinum: The imaged thyroid gland is unremarkable. No supraclavicular lymphadenopathy. No axillary lymphadenopathy. There are multiple mildly enlarged mediastinal and bilateral hilar lymph nodes which may represent sarcoidosis. For instance, a right hilar lymph node measures 15 mm in short axis (image 138), a right infrahilar lymph node measures 15 mm in short axis (image 175), a left hilar lymph node measures 14 mm in short axis (image 154), a lower right paratracheal lymph node measures 12 mm in short axis (image 124), an AP window lymph node measures 13 mm in short axis (image 112), and a subcarinal node measures 15 mm in short axis (image 138). Heart, pericardium, and thoracic vessels: The thoracic aorta and main pulmonary artery are normal in caliber. The cardiac chambers are normal in size. No coronary artery atherosclerotic calcifications are noted, although the study is not optimized for coronary assessment. No pericardial effusion or thickening. Bones and soft tissues: No destructive bone lesion. Chest wall is unremarkable. Upper abdomen: Reported separately Localizer images: No additional findings. IMPRESSION IMPRESSION: Multiple mediastinal and bilateral hilar lymphadenopathy, indeterminate although suspicious for possible sarcoidosis. Additional considerations include granulomatous infections, lymphoproliferative conditions and metastatic disease. Suggest further workup and continued follow-up. Mild bronchial wall thickening in both lungs suggestive of chronic airway inflammation. Indeterminate sub-6 mm multiple bilateral lung nodules. Suggest follow-up given history of smoking with repeat CT in 12 months. Incidental Finding: Follow-up Acuity: Incidental Finding: Solid: <6 mm (solitary or multiple) Routing Code: N/A Recommendation: No imaging follow-up is recommended Time Frame: N/A Comments: If there are risk factors for lung malignancy, a follow-up chest CT exam could be obtained in 12 months --END OF FINDING-- Ship Runner: ROD Transcribe Date/Time: Jan 31 2024 2:25P Dictated by : MALACHI FLOYD MD This examination was interpreted and the report reviewed and electronically signed by: MALACHI FLOYD MD on Jan 31 2024 2:37PM EST [facility] Radiology Study observation (narrative) Armando henson [facility] EDILon 09-14-2023 CNOV Office Visit (WSTR ) HANKINS,GERMÁN ([id number]) 1980 F Date Time Provider Department 09/14/23 3:15 PM LUIS EMERSON During your visit today, we recorded the following information about you: Temperature Pulse Respiration Blood pressure 98.3 degrees 86/minute 22/minute 138/83 Weight Last Period 75 kg 09/06/23 Luis Emerson APRN.CNP 09/14/2023 3:55 PM Signed Subjective HPI HPI Germán Hankins is a 43 year old female who presents today for CC of cough, congestion, wheezing, sob. This started today. Has tried nothing for relief. Symptoms are worsened by nothing. Risk factors sick family member with same s/s, dx viral. Patient smokes, needs inhalers with illness. .Patient presents with: Chest Congestion: Cough, Wheeze, SOB, fatigue, x this am PAST MEDICAL HISTORY Diagnosis Date Thrombocytopenia, unspecified (HCC) 2005 while , has not been rechecked to make sure they returned to normal. PAST SURGICAL HISTORY Procedure Laterality Date DELIVERY ONLY 2002,2005 , low cervical TONSILLECTOMY AND ADENOIDECTOMY T/A (under age 12 years) TYMPANOSTOMY GENERAL ANESTHESIA 1985 Ear tubes ALLERGIES Patient has no known allergies. MEDICATIONS multivit,thx,calcium,i akilah,mins (MULTIVITAMIN AND MINERAL ORAL) Take by mouth. albuterol HFA (PROVENTIL HFA, VENTOLIN HFA) 90 mcg/actuation inhaler Inhale 2 Puffs as instructed every 6 hours as needed for wheezing/shortness of breath. (Patient not taking: Reported on 09/14/2023) Azelastine HCl (OPTIVAR) 0.05 % ophthalmic solution Use 1 Drop in both eyes twice daily. (Patient not taking: Reported on 01/20/2021 ) albuterol HFA 90 mcg/actuation inhaler Inhale 2 Puffs as instructed every 6 hours as needed for Wheezing/Shortness of Breath. (Patient not taking: Reported on 01/20/2021 ) FAMILY HISTORY Problem Relation Age of Onset Hypertension Maternal Grandfather Hypertension Maternal Grandmother Social History Tobacco Use Smoking status: Every Day Years: 5 Types: Cigarettes Smokeless tobacco: Never Tobacco comments: 3 cigs/day Substance Use Topics Alcohol use: Yes Comment: 1 drink/6 months Drug use: No Review of Systems Constitutional: Negative for fever. HENT: Positive for congestion and sore throat. Negative for ear pain and nosebleeds. Respiratory: Positive for cough. Negative for shortness of breath and wheezing. Musculoskeletal: Negative for neck pain. Objective Blood pressure 138/83, pulse 86, temperature 36.8 ?C (98.3 ?F), resp. rate 22, weight 75 kg (165 lb 5.5 oz), last menstrual period 09/06/2023, SpO2 97%. Physical Exam Constitutional: General: She is not in acute distress. Appearance: She is not toxic-appearing or diaphoretic. HENT: Head: Normocephalic and atraumatic. Right Ear: Hearing, tympanic membrane, ear canal and external ear normal. Left Ear: Hearing, tympanic membrane, ear canal and external ear normal. Nose: Nose normal. Mouth/Throat: Pharynx: Uvula midline. No pharyngeal swelling, oropharyngeal exudate, posterior oropharyngeal erythema or uvula swelling. Eyes: General: Lids are normal. No scleral icterus. Right eye: No discharge. Left eye: No discharge. Conjunctiva/sclera: Conjunctivae normal. Pupils: Pupils are equal, round, and reactive to light. Neck: Trachea: Trachea normal. Cardiovascular: Rate and Rhythm: Normal rate and regular rhythm. Heart sounds: Normal heart sounds. Pulmonary: Effort: Pulmonary effort is normal. Breath sounds: Wheezing (scattered bilat) present. No decreased breath sounds, rhonchi or rales. Musculoskeletal: Cervical back: Normal range of motion and neck supple. Lymphadenopathy: Cervical: No cervical adenopathy. Right cervical: No superficial cervical adenopathy. Left cervical: No superficial cervical adenopathy. Skin: Findings: No rash. Neurological: Mental Status: She is alert and oriented to person, place, and time. ASSESSMENT/PLAN: 1. URI, acute - ICD9: 465.9, ICD10: J06.9 (primary diagnosis) - Discussed viral etiology and rationale for treatment. - Symptomatic treatment with prn analgesia - Supportive care with fluids and rest - Follow up in 3-5 days if symptoms persist or sooner if worsening of symptoms Vs normal - PREDNISONE 10 MG TABLET - ALBUTEROL SULFATE HFA 90 MCG/ACTUATION AEROSOL INHALER 2. Wheezing - ICD9: 786.07, ICD10: R06.2 - PREDNISONE 10 MG TABLET - ALBUTEROL SULFATE HFA 90 MCG/ACTUATION AEROSOL INHALER Luis Emerson APRN.LAPPING MACHINE SET UP OPERATOR Allergies As of Date: 09/14/2023 (No Known Allergies) Date Reviewed: 09/14/2023 Reviewed by: Luis Emerson APRN.LAPPING MACHINE SET UP OPERATOR - Fully Assessed Reason for Visit: Chest Congestion [236] Cmt: Cough, Wheeze, SOB, fatigue, x this am Primary Visit Diagnosis:URI, acute [J06.9] Other Visit Diagnosis:Wheezing [R06.2] Order(s):predniSONE (DELTASONE) 10 mg tabletTak (more content not included)... Normal [facility] Rodriguez Basophil percentageOrdered B y: Naresh Ramsey on 07-30-2023 Chloride [Moles/Vol] 113 mmol/L 98-107 [facility] Cholesterol [Mass/Vol] 151 mg/dL <200 [facility] Comment on above: <200 mg/dL Desirable 200-240 mg/dL Borderline >240 mg/dL High Risk Glucose [Mass/Vol] 86 mg/dL 74-106 [facility] Potassium [Moles/Vol] 4.4 mmol/L 3.5-5.1 [facility] Sodium [Moles/Vol] 141 mmol/L 136-145 [facility] Triglyceride [Mass/Vol] 88 mg/dL <199 [facility] Comment on above: The drugs N-Acetylcy steine and Metamizole may falsely depress this assay.Serum Triglycerides Reference Interval Normal <150 mg/dL Borderline high 150 - 199 mg/dL High 200 - 499 mg/dL Very High > or = 500 mg/dL Laboratory - Chemistry and C hemistry - challengeOrdered By: Naresh Ramsey on 07-30-2023 Cholesterol in HDL [Mass/Vol] 32 mg/dL >40 [facility] Comment on above: The drugs N-Acetylcy steine and Metamizole may falsely depress this assay. Reference Range HDL <40 mg/dL Low HDL Cholesterol HDL >or= 60 mg/dL High HDL Cholesterol Cholesterol in LDL [Mass/Vol] 101 mg/dL 0-130 [facility] CO2 [Moles/Vol] 24.0 mmol/L 21.0-32.0 [facility] Urea nitrogen/Creatinine [Mass ratio] 15.2 mg/mg 10-20 [facility] No Panel InformationOrdered By: Naresh Ramsey on 07-30-2023 Estimated GFR (MDRD) Amer 112 mL/min >60 [facility] Comment on above: GFR Calc Estimated GFR (MDRD) Non-Af Amer 93 mL/min >60 [facility] Comment on above: Non- GFR Calc VLDL Cholesterol 18 mg/dL 5-40 [facility] Serum or plasma calcium tami urement (mass/volume)Ordered By: Naresh Ramsey on 07-30-2023 Calcium [Mass/Vol] 8.7 mg/dL 8.5-10.1 [facility] Serum or plasma creatinine m easurement (mass/volume)Ordered By: Naresh Ramsey on 07-30-2023 Creatinine [Mass/Vol] 0.73 mg/dL 0.55-1.02 [facility] Comment on above: The validity of the calculated GFR & GFRAA in patients over 70 years has not been determined. Clinical correlation is essential. Serum or plasma thyroid stim ulating hormone (TSH) measurement (units/volume)Ordered By: Naresh Ramsey on 07-30-2023 TSH Qn 3.61 uIU/mL 0.358-3.74 [facility] Serum or plasma urea nitroge n measurement (mass/volume)Ordered By: Naresh Ramsey on 07-30-2023 Urea nitrogen [Mass/Vol] 11 mg/dL 7-18 [facility] Thin prep Papanicolaou smear with manual screeningOrdered By: Naresh Ramsey on 07-30-2023 Thin prep Papanicolaou smear with manual screening 4 5-15 [facility] Vital Signs Date Time Vital Sign Value Performing Clinician Faci lity 11-03-2024 08:16-0400 Body height 160.[address] Naresh Ramsey MD Work Phone: [facility] 11-03-2024 08:16-0400 Body mass index (BMI) [Ratio] 29.9 kg/m2 Dr. Naresh Ramsey MD Work Phone: [facility] 11-03-2024 08:16-0400 Body temperature 97 [degF] Dr. Naresh Ramsey MD Work Phone: 9(573)241-182901 [place] [address] 11-03-2024 08:16-0400 Body weight 76.[address] Naresh Ramsey MD Work Phone: 3(745)407-599001 [place] [address] 11-03-2024 08:16-0400 Diastolic blood pressure 83 mm[Hg] Dr. Naresh Ramsey MD Work Phone: 0(402)684-209142 [place] [address] 11-03-2024 08:16-0400 Heart rate 67 /min Dr. Naresh Ramsey MD Work Phone: 9(838)308-724842 [place] [address] 11-03-2024 08:16-0400 Respiratory rate 20 /min Dr. Naresh Ramsey MD Work Phone: 4(653)473-713642 [place] [address] 11-03-2024 08:16-0400 SaO2% (BldA) [Mass fraction] 98 % Dr. Naresh Ramsey MD Work Phone: 9(012)104-269242 [place] [address] 11-03-2024 08:16-0400 Systolic blood pressure 123 mm[Hg] Dr. Naresh Ramsey MD Work Phone: 0(878)096-344742 [place] [address] 09-01-2024 07:38-0400 Body height 160.[address] Naresh Ramsey MD Work Phone: 5(626)271-143942 [place] [address] 09-01-2024 07:38-0400 Body mass index (BMI) [Ratio] 30.2 kg/m2 Dr. Naresh Ramsey MD Work Phone: 1(865)393-401142 [place] [address] 09-01-2024 07:38-0400 Body temperature 97.1 [degF] Dr. Naresh Ramsey MD Work Phone: 4(503)678-963342 [place] [address] 09-01-2024 07:38-0400 Body weight 77.[address] Naresh Ramsey MD Work Phone: 2(528)860-662042 [place] [address] 09-01-2024 07:38-0400 Diastolic blood pressure 60 mm[Hg] Dr. Naresh Ramsey MD Work Phone: 6(138)450-088501 [place] [address] 09-01-2024 07:38-0400 Heart rate 75 /min Dr. Naresh Ramsey MD Work Phone: 0(384)259-606401 [place] [address] 09-01-2024 07:38-0400 Respiratory rate 18 /min Dr. Naresh Ramsey MD Work Phone: [facility] 09-01-2024 07:38-0400 SaO2% (BldA) [Mass fraction] 99 % Dr. Naresh Ramsey MD Work Phone: [facility] 09-01-2024 07:38-0400 Systolic blood pressure 123 mm[Hg] Dr. Naresh Ramsey MD Work Phone: [facility] 11-17-2021 18:16-0400 Body temperature 98.6 [degF] Marilia Gaitan APRN.LAPPING MACHINE SET UP OPERATOR Work Phone: [facility] 11-17-2021 18:16-0400 Body weight 74.03 kg Marilia Gaitan APRN.LAPPING MACHINE SET UP OPERATOR Work Phone: [facility] 11-17-2021 18:16-0400 Diastolic blood pressure 64 mm[Hg] Marilia Gaitan APRN.LAPPING MACHINE SET UP OPERATOR Work Phone: [facility] 11-17-2021 18:16-0400 Heart rate 88 /min Marilia Gaitan APRN.LAPPING MACHINE SET UP OPERATOR Work Phone: [facility] 11-17-2021 18:16-0400 Respiratory rate 18 /min Marilia Gaitan APRN.LAPPING MACHINE SET UP OPERATOR Work Phone: [facility] 11-17-2021 18:16-0400 SaO2% (BldA) [Mass fraction] 99 % Marilia Gaitan APRN.LAPPING MACHINE SET UP OPERATOR Work Phone: [facility] 11-17-2021 18:16-0400 Systolic blood pressure 128 mm[Hg] Marilia Gaitan APRN.LAPPING MACHINE SET UP OPERATOR Work Phone: [facility] Encounters Encounter Date Encounter Type Care Provider Facility Start: 02-01-2025 ambulatory Naresh Ramsey Facility:[facility] Start: 11-30-2024 End: 11-30-[address] Naresh Ramsey MD Work Phone: [facility] Work Phone: Start: 11-30-2024 End: 11-30-[address] Naresh Ramsey MD -Laboratory [facility] Start: 11-30-2024 End: 11-30-2024 ambulatory Naresh Ramsey Facility:[facility] Start: 11-03-2024 End: 11-03-2024 Patient encounter procedure DETAIL SERGEANT Tavia Powell -[facility] Work Phone: Start: 11-03-2024 End: 11-03-[address] Naresh Ramsey MD Work Phone: [facility] Work Phone: Start: 09-30-2024 ambulatory Tony Sanchez Facility:[facility] Start: 09-30-2024 Non-patient / Non-visit Dr. Dorita BHAT -[facility] Start: 09-30-2024 End: 09-30-2024 Patient encounter procedure DETAIL SERGEANT Tavia Powell -[facility] Services Work Phone: Start: 09-30-2024 End: 09-30-2024 ambulatory Tavia Powell Facility:[facility] Start: 09-01-2024 End: 09-01-[address] Naresh Ramsey MD Work Phone: [facility] Work Phone: Start: 09-01-2024 End: 09-01-2024 Patient encounter procedure DETAIL SERGEANT Tavia Powell -Laboratory Work Phone: Start: 09-01-2024 End: 09-01-2024 Patient encounter procedure DETAIL SERGEANT Tavia Powell -[facility] Work Phone: Start: 09-01-2024 End: 09-01-2024 ambulatory Tavia Powell Facility:[facility] Start: 09-01-2024 End: 09-01-2024 ambulatory Tavia Powell Facility:[facility] Start: 02-07-2024 End: 02-07-2024 ambulatory Naresh Ramsey Facility:[facility] Start: 01-31-2024 End: 01-31-2024 ambulatory [facility] Facility:[facility] Start: 01-31-2024 End: 01-31-2024 Subsequent hospital visit by physician [facility] (I-Stat) Work Phone: [facility] Start: 09-14-2023 End: 09-15-2023 ambulatory ALLA SIBILIA Facility:[facility] Start: 07-30-2023 End: 07-30-2023 ambulatory [facility] Work Phone: Start: 07-30-2023 End: 07-30-2023 Patient encounter procedure [facility] Start: 12-27-2022 End: 12-27-2022 ambulatory [facility] Work Phone: Start: 12-27-2022 End: 12-27-2022 Patient encounter procedure [facility]-Outpatient [facility] Work Phone: Start: 11-17-2021 End: 11-17-2021 Patient encounter procedure Marilia Arnie HADLEY.LAPPING MACHINE SET UP OPERATOR Work Phone: [facility] Care Comment on above: Cough (Primary Dx) Procedures Date Procedure Procedure Detail Performing Clinician Start: 11-30-2024 Total iron binding capacity measurement Dr. Naresh Ramsey MD Work Phone: Start: 01-31-2024 Ct thorax w/contrast material [facility] Provider Start: 12-27-2022 Screening mammography Plan of Treatment Date Care Activity Detail Author Start: 10-16-2028 Urine microalbumin profile DTaP,Tdap,Td Vaccine (2 - Td or Tdap) [facility] Start: 02-16-2024 Influenza vaccination Influenza Vaccine (#1) [facility] Start: 02-15-2023 Covid-19 Vaccine ( season) Covid-19 Vaccine ( season) [facility] Start: 02-15-2022 Influenza vaccination INFLUENZA (Season Ended) [facility] Start: 10-12-2021 HPV TESTING HPV TESTING [facility] Start: 10-12-2021 PAP TESTING PAP TESTING [facility] Start: [address] [facility] Start: 2020 Screening for malignant neoplasm of breast Mammogram Screening [facility] Start: 10-13-2019 Screening for malignant neoplasm of cervix Cervical Cancer Screening [facility] Start: 01-11-1999 Hepatitis B Vaccine (1 of 3 - 19+ 3-dose series) Hepatitis B Vaccine (1 of 3 - 19+ 3-dose series) [facility] Start: 01-11-1999 Urine microalbumin profile DTAP,TDAP,TD (1 - Tdap) [facility] Start: 01-11-1998 Anxiety Screening Anxiety Screening [facility] Start: 01-11-1998 Depression Screening Depression Screening [facility] Start: 01-11-1998 HEPATITIS C SCREENING HEPATITIS C SCREENING [facility] Start: 01-11-1998 Hepatitis C screening Hepatitis C Screening [facility] Start: 01-11-1998 HIV SCREENING HIV SCREENING [facility] Start: 01-11-1998 HIV screening HIV Screening [facility] Start: 1992 Adult depression screening assessment DEPRESSION SCREENING [facility] Start: 01-11-1986 PNEUMOCOCCAL (1 - PCV) PNEUMOCOCCAL (1 - PCV) [facility] Start: 01-11-1986 Pneumococcal vaccination Pneumococcal Vaccine (1 of 2 - PCV) [facility] Start: 01-11-1985 COVID-19 VACCINE (#1) COVID-19 VACCINE (#1) [facility] CT Chest WO contrast [facility] Ferritin [Mass/volum e] in Serum or Plasma [facility] Immunizations Immunization Date Immunization Notes Care Provider Ynes booker 03-04-2013 influenza virus vaccine, unspecified formulation Ct (I-Stat) Work Phone: [facility] 04-23-2008 influenza virus vaccine, unspecified formulation Marilia Gaitan APRN.[facility] Work Phone: [facility] Work Phone: Payers Date Payer Category Payer Self-pay [id number] 2024 Self-pay [id number] 2022 Unknown [employer] PPO OOS [id number] 2022-Present [phone] [address] [place] [address] PPO [id number] 2022 Unknown [id number] 2021 Unknown SHAKIR FRANCOIS PPO [id number] 2021-Present [phone] [address] [place] [address] PPO [id number] 2021 Unknown [id number] Unknown [facility] [id number] Unknown [id number] Unknown [id number] Unknown [id number] Unknown [id number] Unknown [id number] Unknown [id number] Unknown [id number] Unknown [id number] Social History Date Type Detail Facility Start: 01-20-2021 End: 09-14-2023 Tobacco smoking status ILIS Smokes tobacco daily [facility] Start: 11-17-2021 End: 09-14-2023 Alcohol intake Current drinker of alcohol (finding) [facility] Start: 1980 Sex Assigned At Not on file [facility] Start: 11-07-2021 End: 11-17-2021 Exposure to SARS-CoV-2 (event) Not sure [facility] Start: 01-20-2021 End: 01-20-2021 Tobacco smoking status NHIS Unknown if ever smoked [facility] Start: 1980 Sex Assigned At Female [facility] History of tobacco use Cigarette Smoker [facility] Start: 09-14-2023 Tobacco use and exposure Smokeless tobacco non-user [facility] Start: 01-20-2021 End: 09-14-2023 History of [address] [facility] Start: 01-20-2021 End: 09-14-[address] [facility] National Score (1-100), lower number is lower risk Not on file [facility] Start: 09-14-2023 Tobacco Comment 3 cigs/day [facility] Start: 09-10-2024 Sex Female (finding) [facility] Start: 11-03-2024 Tobacco smoking stat us NHIS Current some day smoker [facility] Clinical Notes 11-17-2021 to 09-01-2024 Note Date & Type Note Facility 09-01-2024 Chief complaint+R chago for visit Narrative Evaluation for KARY September 01, 2024 9:1 1am INT LABS September 01, 2024 10:20am Reason for Visit Admit Date Daytime hypersomnia September 01, 2024 9:1 1am Hypoxemia September 01, 2024 9:1 1am Multiple pulmonary nodules September 01, 2 025 9:11am Periodic limb movement disorder September 012024 9:11am Shortness of breath September 01, 2024 9:1 1am [facility] Work Phone: 1(257) 823-181403-18-2025 Chief complaint+Reason for visit Narrative * Chief Complaint Admit Date Evaluation for KARY September 01, 2024 9:1 1am INT LABS September 01, 2024 10: 20am SHORTNESS OF BREATH September 30, 2024 12: 47pm 6 wk FU November 03, 2024 1:02p m Reason for Visit Admit Date Daytime hypersomnia September 01, 2024 9:1 1am Hypoxemia September 01, 2024 9:1 1am Multiple pulmonary nodules September 01, 2 025 9:11am Periodic limb movement disorder September 012024 9:11am Shortness of breath September 01, 2024 9:1 1am Daytime hypersomnia November 03, 2024 1:02p m Hypoxemia November 03, 2024 1:02p m Periodic limb movement disorder October 1:02pm Shortness of breath November 03, 2024 1:02p m [facility] Work Phone: 1(464) 604-966003-18-2025 Chief complaint+Reason for visit Narrative * Chief Complaint Admit Date Evaluation for KARY September 01, 2024 9:1 1am INT LABS September 01, 2024 10: 20am SHORTNESS OF BREATH September 30, 2024 12: 47pm 6 wk FU November 03, 2024 1:02p m Reason for Visit Admit Date Daytime hypersomnia September 01, 2024 9:1 1am Hypoxemia September 01, 2024 9:1 1am Multiple pulmonary nodules September 01, 9:11am Periodic limb movement disorder September 012024 9:11am Shortness of breath September 01, 2024 9:1 1am Daytime hypersomnia November 03, 2024 1:02p m Hypoxemia November 03, 2024 1:02p m Iron deficiency November 03, 2024 1:02p m Periodic limb movement disorder October 1:02pm Shortness of breath November 03, 2024 1:02p m [facility] Work Phone: 1(443) 432-368203-18-2025 Evaluation note* Diagnosis Onset Date Resolution Status Admit Date Daytime hypersomnia acute September 01, 2024 9:11am Hypoxemia acute September 01 9:11am Multiple pulmonary nodules acute September 01, 2024 9:11am Periodic limb movement disorder acut e September 01, 2024 9:11am Shortness of breath acute September 01, 2024 9:11am [facility] Work Phone: 1(810) 979-859003-18-2025 Evaluation note* Diagnosis Onset Date Resolution Status Admit Date Daytime hypersomnia acute September 01, 2024 9:11am Hypoxemia acute September 01 9:11am Multiple pulmonary nodules acute September 01, 2024 9:11am Periodic limb movement disorder acut e September 01, 2024 9:11am Shortness of breath acute September 01, 2024 9:11am Daytime hypersomnia acute October 162024 1:02pm Hypoxemia acute November 03, 2024 1:02pm Periodic limb movement disorder acut e November 03, 2024 1:02pm Shortness of breath acute October 162024 1:02pm [facility] Work Phone: 1(567) 474-279903-18-2025 Evaluation note* Diagnosis Onset Date Resolution Status Admit Date Daytime hypersomnia acute September 01, 2024 9:11am Hypoxemia acute September 01 9:11am Multiple pulmonary nodules acute September 01, 2024 9:11am Periodic limb movement disorder acut e September 01, 2024 9:11am Shortness of breath acute September 01, 2024 9:11am Daytime hypersomnia acute October 162024 1:02pm Hypoxemia acute November 03, 2024 1:02pm Iron deficiency acute November 03, 2024 1:02pm Periodic limb movement disorder acut e November 03, 2024 1:02pm Shortness of breath acute October 162024 1:02pm [facility] Work Phone: 1(930) 877-354208-16-2024 History of Present illness Narrative* Yuki Squires, RT(R) - 01/31/2024 11:20 AM EDT Radiology Service Progress Note DATE OF SERVICE: January 31, 2024 TIME: 2:33 PM PATIENT IDENTITY VERIFICATION COMPLETED USING TWO (2) STANDARD IDENTIFIERS: Name and Date of confirmed by patient verbally. FALL SCREENING: Has the patient had 2 falls in the last year or 1 fall with injury or currently using an Ambulatory Assistive Device (Walker, Cane, Wheelchair, Crutches, etc.)? No PATIENT GENDER DATA: Female. status: : No status: NO. PATIENT RELEVANT IMPLANT DATA REVIEWED: Yes PATIENT PRESENTS WITH AN IMPLANTABLE OR ATTACHED ANALOG DESIGN ENGINEER: No ALLERGIES: Reviewed and unchanged CONTRAST ALLERGY: NO. EXAM: CT -CONTRAST INDUCED NEPHROPATHY RISK FACTORS: Not applicable CREATININE: No results found for: CREAT, EGFROTH, EGFRAA P.O.C.T. RESULTS: POC done: Yes, See Lab Tab January 31, 2024 TREATMENT: N/A PERIPHERAL IV DATA: Ambulatory: A peripheral IV was started in the Left antecubital site with a Angio cath: 22 gauge. RADIOLOGY DEPARTMENT: CT; Exam(s) Completed: Chest SIGNATURE: RT Amy(R) PATIENT NAME: Germán Hankins DATE: January 31, 2024 TIME: 2:33 PM documented in this encounterSt[facility] NoteHNO ID: [id number] Author: YUKI SQUIRES RT(R) Service: ? Author Type: Automatic Door Mechanic Type: Progress Notes Filed: 01/31/2024 14:34 Note Text: Radiology Service Progress Note DATE OF SERVICE: January 31, 2024 TIME: 2:33 PM PATIENT IDENTITY VERIFICATION COMPLETED USING TWO (2) STANDARD IDENTIFIERS: Name and Date of confirmed by patient verbally. FALL SCREENING: Has the patient had 2 falls in the last year or 1 fall with injury or currently using an Ambulatory Assistive Device (Walker, Cane, Wheelchair, Crutches, etc.)? No PATIENT GENDER DATA: Female. status: : No status: NO. PATIENT RELEVANT IMPLANT DATA REVIEWED: Yes PATIENT PRESENTS WITH AN IMPLANTABLE OR ATTACHED ANALOG DESIGN ENGINEER: No ALLERGIES: Reviewed and unchanged CONTRAST ALLERGY: NO. EXAM: CT -CONTRAST INDUCED NEPHROPATHY RISK FACTORS: Not applicable CREATININE: No results found for: CREAT, EGFROTH, EGFRAA P.O.C.T. RESULTS: POC done: Yes, See Lab Tab January 31, 2024 TREATMENT: N/A PERIPHERAL IV DATA: Ambulatory: A peripheral IV was started in the Left antecubital site with a Angio cath: 22 gauge. RADIOLOGY DEPARTMENT: CT; Exam(s) Completed: Chest SIGNATURE: RT Amy(R) PATIENT NAME: Germán Hankins DATE: January 31, 2024 TIME: 2:33 [facility]03-30-2024 NoteHNO ID: [id number] Author: LUIS EMERSON APRN.CNP Service: ? Author Type: Nurse Practitioner Type: Progress Notes Filed: 09/14/2023 15:55 Note Text: Subjective HPI HPI Germán Hankins is a 43 year old female who presents today for CC of cough, congestion, wheezing, sob. This started today. Has tried nothing for relief. Symptoms are worsened by nothing. Risk factors sick family member with same s/s, dx viral. Patient smokes, needs inhalers with illness. .Patient presents with: Chest Congestion: Cough, Wheeze, SOB, fatigue, x this am PAST MEDICAL HISTORY Diagnosis Date Thrombocytopenia, unspecified (HCC) 2005 while , has not been rechecked to make sure they returned to normal. PAST SURGICAL HISTORY Procedure Laterality Date DELIVERY ONLY 2002,2005 , low cervical TONSILLECTOMY AND ADENOIDECTOMY T/A (under age 12 years) TYMPANOSTOMY GENERAL ANESTHESIA 1985 Ear tubes ALLERGIES Patient has no known allergies. MEDICATIONS multivit,thx,calcium,iron,mins (MULTIVITAMIN AND MINERAL ORAL) Take by mouth. albuterol HFA (PROVENTIL HFA, VENTOLIN HFA) 90 mcg/actuation inhaler Inhale 2 Puffs as instructed every 6 hours as needed for wheezing/shortness of breath. (Patient not taking: Reported on 09/14/2023) Azelastine HCl (OPTIVAR) 0.05 % ophthalmic solution Use 1 Drop in both eyes twice daily. (Patient not taking: Reported on 01/20/2021 ) albuterol HFA 90 mcg/actuation inhaler Inhale 2 Puffs as instructed every 6 hours as needed for Wheezing/Shortness of Breath. (Patient not taking: Reported on 01/20/2021 ) FAMILY HISTORY Problem Relation Age of Onset Hypertension Maternal Grandfather Hypertension Maternal Grandmother Social History Tobacco Use Smoking status: Every Day Years: 5 Types: Cigarettes Smokeless tobacco: Never Tobacco comments: 3 cigs/day Substance Use Topics Alcohol use: Yes Comment: 1 drink/6 months Drug use: No Review of Systems Constitutional: Negative for fever. HENT: Positive for congestion and sore throat. Negative for ear pain and nosebleeds. Respiratory: Positive for cough. Negative for shortness of breath and wheezing. Musculoskeletal: Negative for neck pain. Objective Blood pressure 138/83, pulse 86, temperature 36.8 ?C (98.3 ?F), resp. rate 22, weight 75 kg (165 lb 5.5 oz), last menstrual period 09/06/2023, SpO2 97%. Physical Exam Constitutional: General: She is not in acute distress. Appearance: She is not toxic-appearing or diaphoretic. HENT: Head: Normocephalic and atraumatic. Right Ear: Hearing, tympanic membrane, ear canal and external ear normal. Left Ear: Hearing, tympanic membrane, ear canal and external ear normal. Nose: Nose normal. Mouth/Throat: Pharynx: Uvula midline. No pharyngeal swelling, oropharyngeal exudate, posterior oropharyngeal erythema or uvula swelling. Eyes: General: Lids are normal. No scleral icterus. Right eye: No discharge. Left eye: No discharge. Conjunctiva/sclera: Conjunctivae normal. Pupils: Pupils are equal, round, and reactive to light. Neck: Trachea: Trachea normal. Cardiovascular: Rate and Rhythm: Normal rate and regular rhythm. Heart sounds: Normal heart sounds. Pulmonary: Effort: Pulmonary effort is normal. Breath sounds: Wheezing (scattered bilat) present. No decreased breath sounds, rhonchi or rales. Musculoskeletal: Cervical back: Normal range of motion and neck supple. Lymphadenopathy: Cervical: No cervical adenopathy. Right cervical: No superficial cervical adenopathy. Left cervical: No superficial cervical adenopathy. Skin: Findings: No rash. Neurological: Mental Status: She is alert and oriented to person, place, and time. ASSESSMENT/PLAN: 1. URI, acute - ICD9: 465.9, ICD10: J06.9 (primary diagnosis) - Discussed viral etiology and rationale for treatment. - Symptomatic treatment with prn analgesia - Supportive care with fluids and rest - Follow up in 3-5 days if symptoms persist or sooner if worsening of symptoms Vs normal - PREDNISONE 10 MG TABLET - ALBUTEROL SULFATE HFA 90 MCG/ACTUATION AEROSOL INHALER 2. 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 PAST SURGICAL HISTORY Procedure Laterality Date DELIVERY ONLY 2002,2005 , low cervical TONSILLECTOMY & ADENOIDECTOMY <AGE 12 1985 (tonsils), 1986 (adenoids) T/A (under age 12 years) TYMPANOSTOMY GENERAL ANESTHESIA 1985 Ear tubes ALLERGIES [...] plan. Marilia Gaitan APRN.INDIRA documented in this encounterSt. [facility] HospitalEvaluation note* Diagnosis Cough- Primary documented [facility] HospitalEvalunemours foundation noteNo assessment information availableWAvita Health [facility] Work Phone: Reason for referral (narrative)No reason for referral information availableWAvita Health System [facility] Work Phone: Chief Complaint and Reason for Visit Chief Complaint SCREENING Advance Directives No Advanced Directives Records Found Advance Directive Response Recorded Date/ Time Living Will No January 20, 2021 9:14am Power of Vending Machine Assembler No January 20 9:14am Advance Directive Response Recorded Date/ Time Living Will No January 20, 2021 8:14am Power of Vending Machine Assembler No January 20 8:14am Summary Purpose Family History No Family History Records FoundNo Family History Records Found Additional Source Comments Source Comments (unrecognize d section and content) In the event this informatio n is protected by the Federal Confidentiality of Alcohol and Drug Abuse Patient Records regulations: The Federal rules restrict any use of the information to criminally investigate or prosecute any alcohol or drug abuse patient.[facility] HospitalIn the event this information is protected by the Federal Confidentiality of Alcohol and Drug Abuse Patient Records regulations: The Federal rules restrict any use of the information to criminally investigate or prosecute any alcohol or drug abuse patient.[facility] Reason for Visit (unrecogniz ed section and content) Reason Comments Chest Congestion intermittent SOB wit h coughing, denied chest pain, reported chest tightness Reason Comments Radiology CT Specialty Diagnoses / Procedures Referred By Contac t Referred To Contact Radiology / RADIO CT SCAN [facility] Diagnoses Hypoxemia ct scan chest hypoxernia dr alla denise md [phone] order in scanned docs Procedures DIAGNOSTIC COMPUTED TOMOGRAPHY THORAX W/CONTRAST CT [facility] [address], [address] [facility] [place] [address] Scan [facility] [address] [place] [address] Referral ID Status Reason Start Date Expiration Date Visits Re quested Visits Authorized [id number] Closed 01/17/2024 06/16/2024 1 1 Care Teams (unrecognized sec tion and content) Team Status: Active Member Role Status Dates Dr. Naresh Ramsey MD Family Provider Active No Primary Care Physician Primary Care Provider Active Team Status: Inactive Member Role Status Dates Dr. Arnie Briggs MD Attending Provider, Referring Pr ovider Active No Primary Care Physician Primary Care Provider Active Team Status: Inactive Member Role Status Dates No Primary Care Physician Primary Care Provider Active Dr. Naresh Ramsey MD Attending Provider Active Team Status: Active Member Role Status Dates Dr. Naresh Ramsey MD Family Provider Active Dr. Naresh Ramsey MD Primary Care Provider Active Team Status: Inactive Member Role Status Dates Dr. Naresh Ramsey MD Primary Care Provider Active Start: September 01, 2024 End: September 01, 2024 Dr. Naresh Ramsey MD Referring Provider Active Start: September 01, 2024 End: September 01, 2024 SHELBI Mcfarland Attending Provider Active Start: September 01, 2024 End: September 01, 2024 Team Status: Inactive Member Role Status Dates Dr. Naresh Ramsey MD Primary Care Provider Active Start: September 01, 2024 End: September 01, 2024 SHELBI Mcfarland Attending Provider Active Start: September 01, 2024 End: September 01, 2024 SHELBI Mcfarland Referring Provider Active Start: September 01, 2024 End: September 01, 2024 Team Status: Active Member Role Status Dates Dr. Naresh Ramsey MD Primary Care Provider Active Team Status: Inactive Member Role Status Dates Dr. Naresh Ramsey MD Primary Care Provider Active Start: September 30, 2024 End: September 30, 2024 SHELBI Mcfarland Attending Provider Active Start: September 30, 2024 End: September 30, 2024 SHELBI Mcfarland Referring Provider Active Start: September 30, 2024 End: September 30, 2024 Team Status: Active Member Role Status Dates Dr. Naresh Ramsey MD Primary Care Provider Active Start: September 30, 2024 Dr. Tony Sanchez MD Attending Provider Active S tart: September 30, 2024 Team Status: Inactive Member Role Status Dates Dr. Naresh Ramsey MD Primary Care Provider Active Start: November 03, 2024 End: November 03, 2024 Dr. Naresh Ramsey MD Referring Provider Active Start: November 03, 2024 End: November 03, 2024 SHELBI Mcfarland Attending Provider Active Start: November 03, 2024 End: November 03, 2024 Team Status: Inactive Member Role Status Dates Dr. Naresh Ramsey MD Primary Care Provider Active Start: November 30, 2024 End: November 30, 2024 Dr. Naresh Ramsey MD Attending Provider Active Start: November 30, 2024 End: November 30, 2024 Dr. Naresh Ramsey MD Referring Provider Active Start: November 30, 2024 End: November 30, 2024 Goals (unrecognized section and content) Goals may be documented in a n alternate sectionGoals may be documented in an alternate sectionGoals may be documented in an alternate sectionGoals may be documented in an alternate sectionGoals may be documented in an alternate section INFORMATION SOURCE (unrecogn ized section and content) DATE CREATED AUTHOR 02/03/2024 [facility] DATE CREATED AUTHOR 'Qi GASPAR 01/24/[address] [facility] FOR RECORDS PERTAINING TO PATIENTS WHO ARE [...] BE BASED ON THE PRIMARY CLINICAL RECORDS. [employer] provides no warranty or guarantee of the accuracy or completeness of information in this document.
== END | disposition home or self-care (01) ==
LOC: US 07:49
PROVIDERS: PCP Family Medicine; Referring Provider Nurse Practitioner Women's Health; Visit Provider Nurse Practitioner Women's Health
DX: N92.0 Excessive and frequent menstruation with regular cycle (principal); Z86.2 Personal history of diseases of the blood and blood-forming organs and certain disorders involving the immune mechanism
CPT/HCPCS: 76830; 76856